=== PATIENT | male | born 2000 | race American Indian/Alaskan Native ===

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

== ENCOUNTER 2019-02-02 21:29 | Emergency (ER) | payer MEDICAID ==
[2019-02-02] MEDS ORDERED: MVI, Adult with Vitamin K 10 ML, Folic Acid 1 MG, Thiamine 100 MG in Lactated Ringers 1... IV ONE ×4 (21:38)
[2019-02-02] MEDS ORDERED: LORazepam 2 MG/ML Syringe IVPUSH ONE (21:38)
--- NOTE | 2019-02-02 21:42 | EDM.PDOC ---
ED HPI GENERAL MEDICAL PROBLEM - General Stated Complaint: SHOULDER ISSUES Time Seen by Provider: 02/02/19 21:39 Source of Information: Reports: Patient History Limitations: Reports: No Limitations - History of Present Illness INITIAL COMMENTS - FREE TEXT/NARRATIVE: states was drunk last night and fell down some stairs not sure if hit head did vomit once today thinks could be his anxiety or maybe going through DTs. wants banana bag & ativan. c/o pain mostly on left shoulder but not head/neck. but does have a headache. - Related Data Allergies Allergy/AdvReac Type Severity Reaction Status Date / Time Penicillins Allergy Cannot Verified 02/02/19 22:03 Remember Home Meds: Home Meds FLUoxetine [PROzac] 10 mg PO DAILY 01/23/19 [History] Past Medical History - Past Health History Medical/Surgical History: Denies Medical/Surgical History Neurological History: Reports: Concussion Psychiatric History: Reports: Addiction, Anxiety, Depression, Psych Hospitalization(s), Suicide Attempt, Suicidal Ideation - Past Surgical History GI Surgical History: Reports: Appendectomy Social & Family History - Family History Family Medical History: Noncontributory - Caffeine Use Caffeine Use: Reports: None - Living Situation & Occupation Living situation: Reports: Alone Occupation: Unemployed Review of Systems - Review of Systems Review Of Systems: ROS reveals no pertinent complaints other than HPI. ED EXAM, GENERAL - Physical Exam Exam: See Below Exam Limited By: No Limitations General Appearance: Alert, WD/WN, Anxious, Mild Distress, Moderate Distress Eye Exam: Bilateral Eye: PERRL (pupils ER @ 4mm) Ears: Hearing Grossly Normal Throat/Mouth: Normal Voice, No Airway Compromise Head: Atraumatic Neck: Non-Tender, Full Range of Motion Respiratory/Chest: No Respiratory Distress Cardiovascular: Regular Rate, Rhythm GI/Abdominal: Soft, Non-Tender Extremities: Other (left shoulder tender R/P, NV wnl) Neurological: Alert, Oriented, Normal Cognition, Normal Gait, No Motor/Sensory Deficits Psychiatric: Anxious Skin Exam: Warm, Dry, Normal Color Lymphatic: No Adenopathy Course - Vital Signs Last Recorded V/S: Last Vital Signs Temp 37.1 C 02/02/19 21:37 Pulse 114 H 02/02/19 22:15 Resp 18 02/02/19 22:15 BP 125/89 02/02/19 22:15 Pulse Ox 95 02/02/19 22:15 - Orders/Labs/Meds Labs: Laboratory Tests 02/02/19 02/02/19 02/02/19 Range/Units 21:43 21:43 21:45 WBC 6.9 (5.0-10.0) 10^3/uL RBC 6.14 (4.6-6.2) 10^6/uL Hgb 19.4 H D (14.0-18.0) g/dL Hct 54.8 H (40.0-54.0) % MCV 89.3 (80-100) fL MCH 31.6 (27.0-34.0) pg MCHC 35.4 H (33.0-35.0) g/dL Plt Count 323 (150-450) 10^3/uL Neut % (Auto) 65.0 (42.2-75.2) % Lymph % (Auto) 29.3 (20.5-50.1) % [place] % (Auto) 5.0 (2-8) % Eos % (Auto) 0.3 L (1.0-3.0) % Baso % (Auto) 0.4 (0.0-1.0) % Sodium (135-145) mmol/L Potassium (3.6-5.0) mmol/L Chloride (101-111) mmol/L Carbon Dioxide (21.0-31.0) mmol/L Anion Gap BUN (7-18) mg/dL Creatinine (0.6-1.3) mg/dL Est Cr Clr Drug Dosing mL/min Estimated GFR (MDRD) BUN/Creatinine Ratio Glucose (74-105) mg/dL Calcium (8.4-10.2) mg/dl Total Bilirubin (0.2-1.0) mg/dL AST (10-42) IU/L ALT (10-60) IU/L Alkaline Phosphatase (42-121) IU/L Total Protein (6.7-8.2) g/dl Albumin (3.2-5.5) g/dl Globulin Albumin/Globulin Ratio Urine Color Yellow (YELLOW) Urine Appearance Clear (CLEAR) Urine pH 6.0 (5.0-9.0) Ur Specific [place] 1.010 (1.005-1.030) Urine Protein Negative (NEGATIVE) Urine Glucose (UA) Negative (NEGATIVE) Urine Ketones Negative (NEGATIVE) Urine Occult Blood Trace-intact H (NEGATIVE) Urine Nitrite Negative (NEGATIVE) Urine Bilirubin Negative (NEGATIVE) Urine Urobilinogen 1.0 (0.2-1.0) mg/dL Ur Leukocyte Esterase Negative (NEGATIVE) Urine RBC 0-5 /HPF Urine WBC 0-5 (0-5/HPF) /HPF Ur Epithelial Cells Few (NOT SEEN) /HPF Urine Bacteria Few (0-FEW/HPF) /HPF Urine Opiates Screen Negative (NEGATIVE) Ur Oxycodone Screen Negative (NEGATIVE) Urine Methadone Screen Negative (NEGATIVE) Ur Barbiturates Screen Negative (NEGATIVE) U Tricyclic Antidepress Negative (NEGATIVE) Ur Phencyclidine Scrn Negative (NEGATIVE) Ur Amphetamine Screen Negative (NEGATIVE) U Methamphetamines Scrn Negative (NEGATIVE) Urine MDMA Screen Negative (NEGATIVE) U Benzodiazepines Scrn Negative (NEGATIVE) Urine Cocaine Screen Negative (NEGATIVE) U Marijuana (THC) Screen Negative (NEGATIVE) Ethyl Alcohol mg/dL 02/02/19 Range/Units 21:45 WBC (5.0-10.0) 10^3/uL RBC (4.6-6.2) 10^6/uL Hgb (14.0-18.0) g/dL Hct (40.0-54.0) % MCV (80-100) fL MCH (27.0-34.0) pg MCHC (33.0-35.0) g/dL Plt Count (150-450) 10^3/uL Neut % (Auto) (42.2-75.2) % Lymph % (Auto) (20.5-50.1) % [place] % (Auto) (2-8) % Eos % (Auto) (1.0-3.0) % Baso % (Auto) (0.0-1.0) % Sodium 139 (135-145) mmol/L Potassium 3.9 (3.6-5.0) mmol/L Chloride 102 (101-111) mmol/L Carbon Dioxide 21.0 (21.0-31.0) mmol/L Anion Gap 19.9 BUN 5 L (7-18) mg/dL Creatinine 1.0 (0.6-1.3) mg/dL Est Cr Clr Drug Dosing 117.83 mL/min Estimated GFR (MDRD) > 60 BUN/Creatinine Ratio 5.00 Glucose 117 H (74-105) mg/dL Calcium 9.5 (8.4-10.2) mg/dl Total Bilirubin 1.5 H (0.2-1.0) mg/dL AST 85 H (10-42) IU/L ALT 63 H (10-60) IU/L Alkaline Phosphatase 139 H (42-121) IU/L Total Protein 8.9 H (6.7-8.2) g/dl Albumin 5.0 (3.2-5.5) g/dl Globulin 3.9 Albumin/Globulin Ratio 1.28 Urine Color (YELLOW) Urine Appearance (CLEAR) Urine pH (5.0-9.0) Ur Specific [place] (1.005-1.030) Urine Protein (NEGATIVE) Urine Glucose (UA) (NEGATIVE) Urine Ketones (NEGATIVE) Urine Occult Blood (NEGATIVE) Urine Nitrite (NEGATIVE) Urine Bilirubin (NEGATIVE) Urine Urobilinogen (0.2-1.0) mg/dL Ur Leukocyte Esterase (NEGATIVE) Urine RBC /HPF Urine WBC (0-5/HPF) /HPF Ur Epithelial Cells (NOT SEEN) /HPF Urine Bacteria (0-FEW/HPF) /HPF Urine Opiates Screen (NEGATIVE) Ur Oxycodone Screen (NEGATIVE) Urine Methadone Screen (NEGATIVE) Ur Barbiturates Screen (NEGATIVE) U Tricyclic Antidepress (NEGATIVE) Ur Phencyclidine Scrn (NEGATIVE) Ur Amphetamine Screen (NEGATIVE) U Methamphetamines Scrn (NEGATIVE) Urine MDMA Screen (NEGATIVE) U Benzodiazepines Scrn (NEGATIVE) Urine Cocaine Screen (NEGATIVE) U Marijuana (THC) Screen (NEGATIVE) Ethyl Alcohol 258 mg/dL Meds: Medications Discontinued Medications Generic Name Dose Route Start Last Admin Trade Name Víctor PRN Reason Stop Dose Admin Multivitamins/Minerals 10 ml/ 1,011.2 mls @ 999 mls/hr 02/02/19 21:38 22:11 Folic Acid 1 mg/ Thiamine HCl IV 02/02/19 22:38 999 mls/hr 100 mg/ Lactated Ringer's ONETIME ONE Administration Lorazepam 2 mg 02/02/19 21:38 02/02/19 22:12 Ativan IVPUSH 02/02/19 21:39 2 mg ONETIME ONE Administration - Re-Assessments/Exams Free Text/Narrative Re-Assessment/Exam: 02/02/19 22:39 results discussed with pt. Departure - Departure Time of Disposition: 23:25 Disposition: Home, Self-Care 01 Condition: Good Clinical Impression: Dehydration symptoms Clavicle fracture, shaft Qualifiers: Encounter type: initial encounter Fracture type: closed Fracture alignment: nondisplaced Laterality: left Qualified Code(s): S42.025A - Nondisplaced fracture of shaft of left clavicle, initial encounter for closed fracture Alcohol intoxication Qualifiers: Complication of substance-induced condition: uncomplicated Qualified Code(s): F10.920 - Alcohol use, unspecified with intoxication, uncomplicated - Discharge Information Instructions: Clavicle Fracture Referrals: PCP,None [Primary Care Provider] - Forms: ED Department Discharge Additional Instructions: 1) wear sling 2) see clinic tomorrow for ORTHOPEDIC REFERRAL 3) take tylenol or motrin for pain
[2019-02-02 22:09] LABS: ANION GAP 19.9; CHLORIDE,CL 102 mmol/L (101-111); SODIUM,NA 139 mmol/L (135-145)
[2019-02-02 22:28] VITALS: BP 125/89
== END 2019-02-02 23:25 | disposition home or self-care (01) ==
LOC: DL.ED 21:29
DX: S42.025A Nondisplaced fracture of shaft of left clavicle, initial encounter for closed fracture (principal); F10.120 Alcohol abuse with intoxication, uncomplicated; Y90.8 Blood alcohol level of 240 mg/100 ml or more; F41.9 Anxiety disorder, unspecified; F32.9 Major depressive disorder, single episode, unspecified; Z88.0 Allergy status to penicillin; Z79.899 Other long term (current) drug therapy; W10.9XXA Fall (on) (from) unspecified stairs and steps, initial encounter
CPT/HCPCS: 36415; 70450; 71045; 73030; 80053; 80305; 81001; 85025; 96365; 96375; 99284; G0480; J2060; J3411; J7120; J3490

== ENCOUNTER 2019-02-28 10:31 | Emergency (ER) | payer MEDICAID ==
[2019-02-28 11:01] VITALS: BP 125/81; PULSE 69
[2019-02-28] MEDS ORDERED: Ondansetron 4 MG/2 ML SDV IV ONE (11:04)
[2019-02-28] MEDS ORDERED: Famotidine 20 MG/2 ML SDV IVPUSH ONE (11:04)
[2019-02-28] MEDS ORDERED: MVI, Adult with Vitamin K 10 ML, Folic Acid 1 MG, Thiamine 100 MG in Lactated Ringers 1... IV ONE ×4 (11:05)
[2019-02-28 11:51] LABS: ANION GAP 15.4; CHLORIDE,CL 107 mmol/L (101-111); SODIUM,NA 139 mmol/L (135-145)
[2019-02-28] MEDS ORDERED: LORazepam 2 MG/ML Syringe IVPUSH ONE (11:58)
--- NOTE | 2019-02-28 12:37 | EDM.PDOCBH ---
ED HPI GENERAL MEDICAL PROBLEM - General Chief Complaint: Drug or Alcohol Abuse Stated Complaint: AMBULANCE Time Seen by Provider: 02/28/19 10:35 Source of Information: Reports: Patient, EMS History Limitations: Reports: No Limitations - History of Present Illness INITIAL COMMENTS - FREE TEXT/NARRATIVE: ED via [facility] with report of drinking last night and had seizure this am, nauseated. No family or witness to seizure available. Patient has similar hx. Is on no medications for seizure. Patient asking for ativan and banana bag on arrival. Admitted to drinking about one liter of vodka last night, Denied other drug use. Vomited x 1 this am. - Related Data Allergies Allergy/AdvReac Type Severity Reaction Status Date / Time Penicillins Allergy Cannot Verified 02/28/19 10:37 Remember Home Meds: Home Meds . [No Known Home Meds] 02/28/19 [History] Past Medical History - Past Health History Medical/Surgical History: Denies Medical/Surgical History HEENT History: Reports: None Cardiovascular History: Reports: None Respiratory History: Reports: None Gastrointestinal History: Reports: None Genitourinary History: Reports: None Musculoskeletal History: Reports: None Neurological History: Reports: Concussion, Seizure Other Neuro History: Alcoholic withdrawal Seizures Psychiatric History: Reports: Addiction, Anxiety, Depression, Psych Hospitalization(s), Suicide Attempt, Suicidal Ideation Endocrine/Metabolic History: Reports: None Hematologic History: Reports: None Immunologic History: Reports: None Oncologic (Cancer) History: Reports: None Dermatologic History: Reports: None - Past Surgical History GI Surgical History: Reports: Appendectomy Social & Family History - Family History Family Medical History: Noncontributory - Tobacco Use Smoking Status *Q: Current Every Day Smoker Years of Tobacco use: 8 Packs/Tins Daily: 1 - Caffeine Use Caffeine Use: Reports: None - Recreational Drug Use Recreational Drug Use: No - Living Situation & Occupation Living situation: Reports: Alone Occupation: Unemployed ED ROS GENERAL - Review of Systems Review Of Systems: ROS reveals no pertinent complaints other than HPI. ED EXAM, BEHAVIORAL HEALTH - Physical Exam Exam: See Below Exam Limited By: No Limitations General Appearance: Alert, No Apparent Distress, Anxious Eye Exam: Bilateral Eye: EOMI, PERRL Ears: Normal External Exam Nose: Normal Inspection Throat/Mouth: Normal Inspection Head: Atraumatic, Normocephalic Neck: Normal Inspection Respiratory/Chest: No Respiratory Distress, Lungs Clear, Normal Breath Sounds Cardiovascular: Normal Peripheral Pulses, Regular Rate, Rhythm GI/Abdominal: Normal Bowel Sounds, Soft, Tender (epigastric) Extremities: Normal Inspection Neurological: Alert, Normal Cognition, Oriented x 3, Opens Eyes to Commands. No : Disoriented to Time, Inattentive Psychiatric: Alert, Flat Affect, Poor Eye Contact Skin Exam: Warm, Dry, Intact, Normal color COURSE, BEHAVIORAL HEALTH COMP - Course Vital Signs: Last Vital Signs Temp 99 F 02/28/19 10:32 Pulse 69 02/28/19 10:32 Resp 20 02/28/19 10:32 BP 125/81 02/28/19 10:32 Pulse Ox 99 02/28/19 10:32 Orders, Labs, Meds: Laboratory Tests 02/28/19 02/28/19 02/28/19 Range/Units 10:48 10:48 11:17 WBC 7.3 (5.0-10.0) 10^3/uL RBC 5.17 (4.6-6.2) 10^6/uL Hgb 16.5 D (14.0-18.0) g/dL Hct 47.3 (40.0-54.0) % MCV 91.5 (80-100) fL MCH 31.9 (27.0-34.0) pg MCHC 34.9 (33.0-35.0) g/dL Plt Count 246 D (150-450) 10^3/uL Neut % (Auto) 61.7 (42.2-75.2) % Lymph % (Auto) 28.0 (20.5-50.1) % Daniels % (Auto) 9.4 H (2-8) % Eos % (Auto) 0.8 L (1.0-3.0) % Baso % (Auto) 0.1 (0.0-1.0) % Sodium 139 (135-145) mmol/L Potassium 3.4 L (3.6-5.0) mmol/L Chloride 107 (101-111) mmol/L Carbon Dioxide 20.0 L (21.0-31.0) mmol/L Anion Gap 15.4 BUN 10 (7-18) mg/dL Creatinine 1.0 (0.6-1.3) mg/dL Est Cr Clr Drug Dosing 117.83 mL/min Estimated GFR (MDRD) > 60 BUN/Creatinine Ratio 10.00 Glucose 89 (74-105) mg/dL Calcium 9.2 (8.4-10.2) mg/dl Total Bilirubin 1.0 (0.2-1.0) mg/dL AST 28 (10-42) IU/L ALT 25 (10-60) IU/L Alkaline Phosphatase 107 (42-121) IU/L Total Protein 7.2 (6.7-8.2) g/dl Albumin 4.3 (3.2-5.5) g/dl Globulin 2.9 Albumin/Globulin Ratio 1.48 Urine Color Dark yellow (YELLOW) Urine Appearance Slightly cloudy (CLEAR) Urine pH 5.5 (5.0-9.0) Ur Specific [place] >= 1.030 (1.005-1.030) Urine Protein Trace H (NEGATIVE) Urine Glucose (UA) Negative (NEGATIVE) Urine Ketones 15 H (NEGATIVE) Urine Occult Blood Negative (NEGATIVE) Urine Nitrite Negative (NEGATIVE) Urine Bilirubin Negative (NEGATIVE) Urine Urobilinogen 1.0 (0.2-1.0) mg/dL Ur Leukocyte Esterase Negative (NEGATIVE) Urine RBC 0-5 /HPF Urine WBC 5-10 H (0-5/HPF) /HPF Ur Epithelial Cells Rare (NOT SEEN) /HPF Amorphous Sediment Rare (NOT SEEN) /HPF Urine Bacteria Rare (0-FEW/HPF) /HPF Hyaline Casts Rare H (NOT SEEN) /LPF Urine Mucus Many H (NOT SEEN) /LPF Urine Opiates Screen (NEGATIVE) Ur Oxycodone Screen (NEGATIVE) Urine Methadone Screen (NEGATIVE) Ur Barbiturates Screen (NEGATIVE) U Tricyclic Antidepress (NEGATIVE) Ur Phencyclidine Scrn (NEGATIVE) Ur Amphetamine Screen (NEGATIVE) U Methamphetamines Scrn (NEGATIVE) Urine MDMA Screen (NEGATIVE) U Benzodiazepines Scrn (NEGATIVE) Urine Cocaine Screen (NEGATIVE) U Marijuana (THC) Screen (NEGATIVE) Ethyl Alcohol 14 mg/dL 02/28/19 Range/Units 11:17 WBC (5.0-10.0) 10^3/uL RBC (4.6-6.2) 10^6/uL Hgb (14.0-18.0) g/dL Hct (40.0-54.0) % MCV (80-100) fL MCH (27.0-34.0) pg MCHC (33.0-35.0) g/dL Plt Count (150-450) 10^3/uL Neut % (Auto) (42.2-75.2) % Lymph % (Auto) (20.5-50.1) % Daniels % (Auto) (2-8) % Eos % (Auto) (1.0-3.0) % Baso % (Auto) (0.0-1.0) % Sodium (135-145) mmol/L Potassium (3.6-5.0) mmol/L Chloride (101-111) mmol/L Carbon Dioxide (21.0-31.0) mmol/L Anion Gap BUN (7-18) mg/dL Creatinine (0.6-1.3) mg/dL Est Cr Clr Drug Dosing mL/min Estimated GFR (MDRD) BUN/Creatinine Ratio Glucose (74-105) mg/dL Calcium (8.4-10.2) mg/dl Total Bilirubin (0.2-1.0) mg/dL AST (10-42) IU/L ALT (10-60) IU/L Alkaline Phosphatase (42-121) IU/L Total Protein (6.7-8.2) g/dl Albumin (3.2-5.5) g/dl Globulin Albumin/Globulin Ratio Urine Color (YELLOW) Urine Appearance (CLEAR) Urine pH (5.0-9.0) Ur Specific [place] (1.005-1.030) Urine Protein (NEGATIVE) Urine Glucose (UA) (NEGATIVE) Urine Ketones (NEGATIVE) Urine Occult Blood (NEGATIVE) Urine Nitrite (NEGATIVE) Urine Bilirubin (NEGATIVE) Urine Urobilinogen (0.2-1.0) mg/dL Ur Leukocyte Esterase (NEGATIVE) Urine RBC /HPF Urine WBC (0-5/HPF) /HPF Ur Epithelial Cells (NOT SEEN) /HPF Amorphous Sediment (NOT SEEN) /HPF Urine Bacteria (0-FEW/HPF) /HPF Hyaline Casts (NOT SEEN) /LPF Urine Mucus (NOT SEEN) /LPF Urine Opiates Screen Negative (NEGATIVE) Ur Oxycodone Screen Negative (NEGATIVE) Urine Methadone Screen Negative (NEGATIVE) Ur Barbiturates Screen Negative (NEGATIVE) U Tricyclic Antidepress Negative (NEGATIVE) Ur Phencyclidine Scrn Negative (NEGATIVE) Ur Amphetamine Screen Negative (NEGATIVE) U Methamphetamines Scrn Negative (NEGATIVE) Urine MDMA Screen Negative (NEGATIVE) U Benzodiazepines Scrn Negative (NEGATIVE) Urine Cocaine Screen Negative (NEGATIVE) U Marijuana (THC) Screen Negative (NEGATIVE) Ethyl Alcohol mg/dL Medications Discontinued Medications Generic Name Dose Route Start Last Admin Trade Name Víctor PRN Reason Stop Dose Admin Famotidine 20 mg 02/28/19 11:04 02/28/19 11:22 Pepcid IVPUSH 02/28/19 11:05 20 mg ONETIME ONE Administration Multivitamins/Minerals 10 ml/ 1,011.2 mls @ 999 mls/hr 02/28/19 11:05 11:19 Folic Acid 1 mg/ Thiamine HCl IV 02/28/19 12:05 999 mls/hr 100 mg/ Lactated Ringer's ONETIME ONE Administration Lorazepam 1 mg 02/28/19 11:58 02/28/19 12:22 Ativan IVPUSH 02/28/19 11:59 1 mg ONETIME ONE Administration Ondansetron HCl 4 mg 02/28/19 11:04 02/28/19 11:24 Zofran IV 02/28/19 11:05 4 mg ONETIME ONE Administration Departure - Departure Time of Disposition: 12:36 Disposition: Home, Self-Care 01 Condition: Good Clinical Impression: Alcohol abuse, Anxiety, Witnessed seizure-like activity - Discharge Information *PRESCRIPTION DRUG MONITORING PROGRAM REVIEWED*: No *COPY OF PRESCRIPTION DRUG MONITORING REPORT IN PATIENT MEIR: No Instructions: Alcohol Use Disorder Referrals: PCP,None [Primary Care Provider] - Forms: ED Department Discharge Additional Instructions: stop drinking, light activity follow up as needed
== END 2019-02-28 12:59 | disposition home or self-care (01) ==
LOC: DL.ED 10:31
DX: F10.10 Alcohol abuse, uncomplicated (principal); F41.9 Anxiety disorder, unspecified; F17.210 Nicotine dependence, cigarettes, uncomplicated; Z88.0 Allergy status to penicillin; Z90.49 Acquired absence of other specified parts of digestive tract
CPT/HCPCS: 36415; 80053; 80305; 80320; 81001; 85025; 96365; 96375; 99285; J2060; J2405; J3411; J3490; J7120; G0480

== ENCOUNTER 2019-03-13 22:31 | Emergency (ER) | payer MEDICAID ==
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
[2019-03-13 23:00] LABS: ACETAMINOPHEN < 10 ug/mL
[2019-03-13 23:01] LABS: ANION GAP 18.3; CHLORIDE,CL 105 mmol/L (101-111); SODIUM,NA 140 mmol/L (135-145)
== END 2019-03-14 00:56 | disposition home or self-care (01) ==
LOC: DL.ED 22:31
DX: S02.40DA Maxillary fracture, left side, initial encounter for closed fracture (principal); S42.022A Displaced fracture of shaft of left clavicle, initial encounter for closed fracture; Z88.0 Allergy status to penicillin; Y04.2XXA Assault by strike against or bumped into by another person, initial encounter
CPT/HCPCS: 36415; 70450; 70486; 71100-LT; 72125; 73030-LT; 80053; 80305-QW; 81001; 85025; 99285-25; G0480

== ENCOUNTER 2019-05-05 05:42 | Emergency (ER) | payer MEDICAID ==
[2019-05-05] MEDS ORDERED: Sodium Chloride 0.9% 1,000 ML IV ONE (05:55)
[2019-05-05] MEDS ORDERED: LORazepam 2 MG/ML Syringe IVPUSH ONE (05:55)
[2019-05-05 05:56] VITALS: BP 150/89; PULSE 128
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
[2019-05-05] MEDS ORDERED: Ondansetron 4 MG/2 ML SDV IV ONE (06:28)
[2019-05-05 06:37] LABS: ANION GAP 18.1; CHLORIDE,CL 97 mmol/L (101-111); SODIUM,NA 134 mmol/L (135-145)
== END 2019-05-05 08:17 | disposition home or self-care (01) ==
LOC: DL.ED 05:42
DX: S00.83XA Contusion of other part of head, initial encounter (principal); R56.9 Unspecified convulsions; F10.239 Alcohol dependence with withdrawal, unspecified; F17.210 Nicotine dependence, cigarettes, uncomplicated; Z88.0 Allergy status to penicillin; X58.XXXA Exposure to other specified factors, initial encounter; Y90.5 Blood alcohol level of 100-119 mg/100 ml
CPT/HCPCS: 36415; 70110; 80053; 80320; 85025; 96361; 96374; 96375; 99285; J2060; J2405; J7030; G0480

== ENCOUNTER 2019-08-27 22:53 | Emergency (ER) | payer MEDICAID ==
[~2019-08-27 22:53] MED LIST: Sodium Chloride 0.9% 1,000 ML IV ONE
--- NOTE | 2019-08-27 22:53 | EDM.PDOCBH ---
ED HPI GENERAL MEDICAL PROBLEM - General Chief Complaint: Behavioral/Psych Stated Complaint: AMBULANCE Time Seen by Provider: 08/27/19 22:35 Source of Information: Reports: EMS History Limitations: Reports: Altered Mental Status - History of Present Illness INITIAL COMMENTS - FREE TEXT/NARRATIVE: This 19 yo male patient was brought to the ED by [facility] due to an intentional Tylenol PM overdose. EMS brought the patient into the ED with a suicide note. EMS reports the patient's family reported the pill bottle was "full" of Tylenol PM. EMS brought a bottle of Tylenol with them (500 mg). The bottle had 2 pills ( oblong and blue) with S525 (Tylenol PM - 500 mg of Tylenol and 25 mg of Diphenhydramine). 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 [No Known Home Meds] 02/28/19 [History] Past Medical History - Past Health History Medical/Surgical History: Denies Medical/Surgical History HEENT History: Reports: None Cardiovascular History: Reports: None Respiratory History: Reports: None Gastrointestinal History: Reports: None Genitourinary History: Reports: None Musculoskeletal History: Reports: None Neurological History: Reports: Concussion, Seizure Other Neuro History: Alcoholic withdrawal Seizures Psychiatric History: Reports: Addiction, Anxiety, Depression, Psych Hospitalization(s), Suicide Attempt, Suicidal Ideation Endocrine/Metabolic History: Reports: None Hematologic History: Reports: None Immunologic History: Reports: None Oncologic (Cancer) History: Reports: None Dermatologic History: Reports: None - Past Surgical History GI Surgical History: Reports: Appendectomy Social & Family History - Family History Family Medical History: Noncontributory - Caffeine Use Caffeine Use: Reports: Soda - Living Situation & Occupation Living situation: Reports: Alone Occupation: Unemployed ED ROS GENERAL - Review of Systems Review Of Systems: Comprehensive ROS is negative, except as noted in HPI. ED EXAM, BEHAVIORAL HEALTH - Physical Exam Exam: See Below Exam Limited By: Altered Mental Status General Appearance: Alert, Lethargic Eye Exam: Bilateral Eye: EOMI, PERRL (sluggish but reactive) Ears: Normal External Exam, Normal Canal, Hearing Grossly Normal, Normal TMs Nose: Normal Inspection, Normal Mucosa, No Blood Throat/Mouth: Normal Inspection, Normal Lips, Normal Teeth, Normal Gums, Normal Oropharynx, Normal Voice, No Airway Compromise Head: Atraumatic, Normocephalic Neck: Normal Inspection, Supple, Non-Tender, Full Range of Motion Respiratory/Chest: No Respiratory Distress, Lungs Clear, Normal Breath Sounds, No Accessory Muscle Use, Chest Non-Tender Cardiovascular: Normal Peripheral Pulses, Regular Rate, Rhythm, No Edema, No Gallop, No JVD, No Murmur, No Rub GI/Abdominal: Normal Bowel Sounds (Male) Exam: Deferred Rectal (Males) Exam: Deferred Back Exam: Normal Inspection, Full Range of Motion, NT Extremities: Normal Inspection, Normal Range of Motion, Non-Tender, Normal Capillary Refill, No Pedal Edema Neurological: Inattentive, Opens Eyes to Commands, Slow Response to Commands Psychiatric: Flat Affect, Poor Eye Contact, Suicidal Plan, Suicidal Thoughts Skin Exam: Warm, Dry, Intact, Normal color, No rash COURSE, BEHAVIORAL HEALTH COMP - Course Vital Signs: Last Vital Signs Temp 36.8 C 08/27/19 22:38 Pulse 99 08/27/19 22:38 Resp 19 08/27/19 22:38 BP 141/87 H 08/27/19 22:38 Pulse Ox 100 08/27/19 22:38 Orders, Labs, Meds: Active Orders 24 hr Category Date Time Status EKG Documentation Completion [RC] URGENT Care 08/27/19 22:32 Ordered ACETAMINOPHEN [CHEM] Stat Lab 08/27/19 22:32 Ordered CBC WITH AUTO DIFF [HEME] Urgent Lab 08/27/19 22:32 Ordered COMPREHENSIVE METABOLIC PN,CMP [CHEM] Urgent Lab 08/27/19 22:32 Ordered DRUG SCREEN URINE BIORAD [URCHEM] Stat Lab 08/27/19 22:32 Ordered ETHANOL BLOOD MEDICAL [CHEM] Stat Lab 08/27/19 22:32 Ordered MAGNESIUM [CHEM] Stat Lab 08/27/19 22:32 Ordered SALICYLATE [CHEM] Stat Lab 08/27/19 22:32 Ordered TROPONIN I [CHEM] Urgent Lab 08/27/19 22:32 Ordered UA RFX ISIDRO AND CULT IF INDIC [URIN] Urgent Lab 08/27/19 22:32 Ordered Sodium Chloride 0.9% [Normal Saline] 1,000 ml Med 08/27/19 22:41 Ordered IV .BOLUS Departure - Departure Time of Disposition: 23:45 Disposition: DC/Tfer to Acute Hospital 02 Condition: Serious Clinical Impression: Suicidal intent Tylenol overdose Qualifiers: Encounter type: initial encounter Injury intent: intentional self-harm Qualified Code(s): T39.1X2A - Poisoning by 4-Aminophenol derivatives, intentional self-harm, initial encounter - Discharge Information *PRESCRIPTION DRUG MONITORING PROGRAM REVIEWED*: Not Applicable *COPY OF PRESCRIPTION DRUG MONITORING REPORT IN PATIENT MEIR: Not Applicable Forms: Interfacility Transfer EMTALA, ED Return to Work/School Form Care Plan Goals: Discussed the patient's history, examination, lab results, recommendations from Poison Control and treatments with Dr. Martinez (Hospitalist with [facility] in [place]). Dr. Martinez accepted the patient for continued evaluation and further management as an inpatient at [facility] in [place]. The patient will be transported by [facility]. Sepsis Event Note - Focused Exam Vital Signs: Vital Signs Temp Pulse Resp BP Pulse Ox 08/27/19 22:38 36.8 C 99 19 141/87 H 100 Date Exam was Performed: 08/27/19 Time Exam was Performed: 22:42 - My Orders Last 24 Hours: My Active Orders 08/27/19 22:32 EKG Documentation Completion [RC] URGENT ACETAMINOPHEN [CHEM] Stat CBC WITH AUTO DIFF [HEME] Urgent COMPREHENSIVE METABOLIC PN,CMP [CHEM] Urgent DRUG SCREEN URINE BIORAD [URCHEM] Stat ETHANOL BLOOD MEDICAL [CHEM] Stat MAGNESIUM [CHEM] Stat SALICYLATE [CHEM] Stat TROPONIN I [CHEM] Urgent UA RFX ISIDRO AND CULT IF INDIC [URIN] Urgent 08/27/19 22:41 Sodium Chloride 0.9% [Normal Saline] 1,000 ml IV .BOLUS - Assessment/Plan Last 24 Hours: My Active Orders 08/27/19 22:32 EKG Documentation Completion [RC] URGENT ACETAMINOPHEN [CHEM] Stat CBC WITH AUTO DIFF [HEME] Urgent COMPREHENSIVE METABOLIC PN,CMP [CHEM] Urgent DRUG SCREEN URINE BIORAD [URCHEM] Stat ETHANOL BLOOD MEDICAL [CHEM] Stat MAGNESIUM [CHEM] Stat SALICYLATE [CHEM] Stat TROPONIN I [CHEM] Urgent UA RFX ISIDRO AND CULT IF INDIC [URIN] Urgent 08/27/19 22:41 Sodium Chloride 0.9% [Normal Saline] 1,000 ml IV .BOLUS
[2019-08-27 23:10] LABS: ANION GAP 12.8 mEq/L (7-13); CHLORIDE,CL 102 mmol/L (98-107); SODIUM,NA 136 mmol/L (136-145)
[2019-08-27 23:15] LABS: ACETAMINOPHEN 17 ug/mL (10-30 (Therapeutic))
[2019-08-28] MEDS: ACETYLCYSTEINE IV ONE ×4 (00:09→01:00)
[2019-08-28] MEDS: DEXTROSE 5% IV ONE ×4 (00:09→01:00)
[2019-08-28] MEDS: WATER IV ONE ×4 (00:09→01:00)
[2019-08-28 01:02] VITALS: BP 137/89; PULSE 77
== END 2019-08-28 00:10 ==
LOC: DL.ED 22:53
DX: T39.1X2A Poisoning by 4-Aminophenol derivatives, intentional self-harm, initial encounter (principal); Z88.0 Allergy status to penicillin; Z90.49 Acquired absence of other specified parts of digestive tract
CPT/HCPCS: 36415; 51702; 80053; 80305-QW; 80307; 81001; 83735; 84484; 85025; 85610; 93005; 96365; 99285-25; J0132; J7030; J7060

== ENCOUNTER 2019-11-05 11:18 | Observation (INO) | payer MEDICAID ==
[2019-11-05] MEDS ORDERED: Sodium Chloride 0.9% 1,000 ML IV ONE (11:42)
[2019-11-05] MEDS ORDERED: LORazepam 2 MG/ML SDV IVPUSH ONE (11:43)
--- NOTE | 2019-11-05 11:43 | EDM.PDOC ---
ED HPI GENERAL MEDICAL PROBLEM - General Stated Complaint: BLOOD IN URINE Time Seen by Provider: 11/05/19 11:25 Source of Information: Reports: Patient History Limitations: Reports: No Limitations - History of Present Illness INITIAL COMMENTS - FREE TEXT/NARRATIVE: This 19 yo male patient reports to the ED today due to noticing blood in his stool today. The patient reports he noticed the blood this morning at about 0800. The patient reports he has been drinking up to 1/2 gallon of alcohol per day for the past 5-6 years. The patient reports he has had seizures in the past due to alcohol withdrawal. The patient reports he has had previous episodes of vomiting blood in the past. The patient also reports a history of anxiety. The patient has not been taking any medications for his anxiety due to not having a primary care provider to refill his medications. The patient reports he has been feeling lightheaded today as well. Onset: Today Duration: Constant Location: Reports: Generalized Quality: Reports: Other Severity: Moderate Improves with: Reports: None Worsens with: Reports: None Context: Reports: Other Associated Symptoms: Reports: No Other Symptoms Bilateral Lower Abdomen Pain Score (Numeric/FACES): 5 - Related Data Allergies Allergy/AdvReac Type Severity Reaction Status Date / Time Penicillins Allergy Cannot Verified 08/27/19 23:04 Remember Home Meds: Home Meds . [No Known Home Meds] 02/28/19 [History] Past Medical History - Past Health History Medical/Surgical History: Denies Medical/Surgical History HEENT History: Reports: None Cardiovascular History: Reports: None Respiratory History: Reports: None Gastrointestinal History: Reports: None Genitourinary History: Reports: None Musculoskeletal History: Reports: None Neurological History: Reports: Concussion, Seizure Other Neuro History: Alcoholic withdrawal Seizures Psychiatric History: Reports: Addiction, Anxiety, Depression, Psych Hospitalization(s), Suicide Attempt, Suicidal Ideation Endocrine/Metabolic History: Reports: None Hematologic History: Reports: None Immunologic History: Reports: None Oncologic (Cancer) History: Reports: None Dermatologic History: Reports: None - Past Surgical History GI Surgical History: Reports: Appendectomy Social & Family History - Family History Family Medical History: Noncontributory - Caffeine Use Caffeine Use: Reports: Soda - Living Situation & Occupation Living situation: Reports: Alone Occupation: Unemployed ED ROS GENERAL - Review of Systems Review Of Systems: Comprehensive ROS is negative, except as noted in HPI. ED EXAM, GI/ABD - Physical Exam Exam: See Below Exam Limited By: No Limitations General Appearance: Alert, WD/WN, Anxious, Moderate Distress Eyes: Bilateral: Normal Appearance, EOMI Ears: Normal External Exam, Normal Canal, Hearing Grossly Normal, Normal TMs Nose: Normal Inspection, Normal Mucosa, No Blood Throat/Mouth: Normal Inspection, Normal Lips, Normal Teeth, Normal Gums, Normal Oropharynx, Normal Voice, No Airway Compromise Head: Atraumatic, Normocephalic Neck: Normal Inspection, Supple, Non-Tender, Full Range of Motion Respiratory/Chest: No Respiratory Distress, Lungs Clear, Normal Breath Sounds, No Accessory Muscle Use, Chest Non-Tender Cardiovascular: Normal Peripheral Pulses, Regular Rate, Rhythm, No Edema, No Gallop, No JVD, No Murmur, No Rub GI/Abdominal Exam: Normal Bowel Sounds, Soft, Non-Tender, No Organomegaly, No Distention, No Abnormal Bruit, No Mass, Pelvis Stable (Male) Exam: Deferred Rectal (Males) Exam: Normal Exam, Normal Rectal Tone, Prostate Normal Back Exam: Normal Inspection, Full Range of Motion, NT Extremities: Normal Inspection, Normal Range of Motion, Non-Tender, Normal Capillary Refill, No Pedal Edema Neurological: Alert, Oriented, CN II-XII Intact, Normal Cognition, Normal Gait, Normal Reflexes, No Motor/Sensory Deficits Psychiatric: Normal Affect, Normal Mood Skin Exam: Warm, Dry, Intact, Normal Color, No Rash Lymphatic: No Adenopathy Course - Vital Signs Last Recorded V/S: Last Vital Signs Temp 37.0 C 11/05/19 11:42 Pulse 101 H 11/05/19 11:42 Resp 20 11/05/19 11:42 BP 135/91 H 11/05/19 11:42 Pulse Ox 99 11/05/19 11:42 - Orders/Labs/Meds Orders: Active Orders 24 hr Category Date Time Status DRUG SCREEN URINE BIORAD [URCHEM] Stat Lab 11/05/19 11:32 Ordered UA RFX ISIDRO AND CULT IF INDIC [URIN] Urgent Lab 11/05/19 11:32 Ordered MVI w/Vit K 10 ML,Folic Acid 1 MG,Thiamine 100 MG in LR Med 11/05/19 12:06 Ordered @ 999 MLS/HR MVI, Adult with Vitamin K [Infuvite Adult] 10 ml Folic Acid 1 mg Thiamine [Vitamin B-1] 100 mg Lactated Ringers [Ringers, Lactated] 1,000 ml IV ONETIME Sodium Chloride 0.9% [Normal Saline] 1,000 ml Med 11/05/19 11:42 Active IV .BOLUS Medication Orders Sodium Chloride (Normal Saline) 1,000 mls @ 999 mls/hr IV .BOLUS ONE Stop: 11/05/19 12:42 Last Admin: 11/05/19 12:02 Dose: 999 mls/hr Multivitamins/Minerals 10 ml/Folic Acid 1 mg/ Thiamine HCl 100 mg/ Lactated Ringer's 1,011.2 mls @ 999 mls/hr IV ONETIME ONE Stop: 11/05/19 13:06 Labs: Laboratory Tests 11/05/19 11/05/19 Range/Units 11:33 11:33 WBC 8.7 (5.0-10.0) 10^3/uL RBC 5.10 (4.6-6.2) 10^6/uL Hgb 17.1 D (14.0-18.0) g/dL Hct 47.2 (40.0-54.0) % MCV 92.5 (80-100) fL MCH 33.5 (27.0-34.0) pg MCHC 36.2 H (33.0-35.0) g/dL Plt Count 189 (150-450) 10^3/uL Neut % (Auto) 69.0 (42.2-75.2) % Lymph % (Auto) 25.6 (20.5-50.1) % Gilchrist % (Auto) 4.6 (2-8) % Eos % (Auto) 0.5 L (1.0-3.0) % Baso % (Auto) 0.3 (0.0-1.0) % Sodium 136 (136-145) mmol/L Potassium 3.2 L (3.5-5.1) mmol/L Chloride 96 L (98-107) mmol/L Carbon Dioxide 23 (21-32) mmol/L Anion Gap 20.2 H (7-13) mEq/L BUN 9 (7-18) mg/dL Creatinine 1.00 (0.70-1.30) mg/dL Est Cr Clr Drug Dosing 116.85 mL/min Estimated GFR (MDRD) > 60 BUN/Creatinine Ratio 9.0 (No establ ref range) Glucose 94 (74-99) mg/dL Calcium 8.9 (8.5-10.1) mg/dL Total Bilirubin 1.2 H (0.2-1.0) mg/dL AST 56 H (15-37) U/L ALT 51 (16-63) U/L Alkaline Phosphatase 107 (46-116) U/L Total Protein 7.9 (6.4-8.2) g/dL Albumin 4.3 (3.4-5.0) g/dL Globulin 3.6 Albumin/Globulin Ratio 1.2 Ethyl Alcohol 51 (0) mg/dL Meds: Medications Generic Name Dose Route Start Last Admin Trade Name Freq PRN Reason Stop Dose Admin Sodium Chloride 1,000 mls @ 999 mls/hr 11/05/19 11:42 11/05/19 12:02 Normal Saline IV 11/05/19 12:42 999 mls/hr .BOLUS ONE Administration Multivitamins/Minerals 10 ml/ 1,011.2 mls @ 999 mls/hr 11/05/19 12:06 Folic Acid 1 mg/ Thiamine HCl IV 11/05/19 13:06 100 mg/ Lactated Ringer's ONETIME ONE Discontinued Medications Generic Name Dose Route Start Last Admin Trade Name Freq PRN Reason Stop Dose Admin Lorazepam 0.5 mg 11/05/19 11:43 11/05/19 12:03 Ativan IVPUSH 11/05/19 11:44 0.5 mg ONETIME ONE Administration Departure - Departure Time of Disposition: 12:26 Disposition: Refer to Observation Condition: Fair Clinical Impression: GI bleed Qualifiers: GI bleed type/associated pathology: unspecified gastrointestinal hemorrhage type Qualified Code(s): K92.2 - Gastrointestinal hemorrhage, unspecified Alcohol withdrawal Qualifiers: Complication of substance-induced condition: with unspecified complication Qualified Code(s): F10.239 - Alcohol dependence with withdrawal, unspecified - Discharge Information *PRESCRIPTION DRUG MONITORING PROGRAM REVIEWED*: Not Applicable *COPY OF PRESCRIPTION DRUG MONITORING REPORT IN PATIENT MEIR: Not Applicable Care Plan Goals: Discussed the patient's history lab results and treatments with Dr. Colón. Dr. Colón accepted the patient for continued evaluation and further management as an observation patient at [facility]. Sepsis Event Note - Focused Exam Vital Signs: Vital Signs Temp Pulse Resp BP Pulse Ox 11/05/19 11:42 37.0 C 101 H 20 135/91 H 99 Date Exam was Performed: 11/05/19 Time Exam was Performed: 12:23 - My Orders Last 24 Hours: My Active Orders 11/05/19 11:32 DRUG SCREEN URINE BIORAD [URCHEM] Stat UA RFX ISIDRO AND CULT IF INDIC [URIN] Urgent 11/05/19 11:42 Sodium Chloride 0.9% [Normal Saline] 1,000 ml IV .BOLUS 11/05/19 12:06 MVI w/Vit K 10 ML,Folic Acid 1 MG,Thiamine 100 MG in LR @ 999 MLS/HR MVI, Adult with Vitamin K [Infuvite Adult] 10 ml Folic Acid 1 mg Thiamine [Vitamin B-1] 100 mg Lactated Ringers [Ringers, Lactated] 1,000 ml IV ONETIME - Assessment/Plan Last 24 Hours: My Active Orders 11/05/19 11:32 DRUG SCREEN URINE BIORAD [URCHEM] Stat UA RFX ISIDRO AND CULT IF INDIC [URIN] Urgent 11/05/19 11:42 Sodium Chloride 0.9% [Normal Saline] 1,000 ml IV .BOLUS 11/05/19 12:06 MVI w/Vit K 10 ML,Folic Acid 1 MG,Thiamine 100 MG in LR @ 999 MLS/HR MVI, Adult with Vitamin K [Infuvite Adult] 10 ml Folic Acid 1 mg Thiamine [Vitamin B-1] 100 mg Lactated Ringers [Ringers, Lactated] 1,000 ml IV ONETIME
[2019-11-05 12:04] LABS: ANION GAP 20.2 mEq/L (7-13); CHLORIDE,CL 96 mmol/L (98-107); SODIUM,NA 136 mmol/L (136-145)
[2019-11-05] MEDS ORDERED: MVI, Adult with Vitamin K 10 ML, Folic Acid 1 MG, Thiamine 100 MG in Lactated Ringers 1... IV ONE ×4 (12:06)
[2019-11-05] MEDS ORDERED: LORazepam 2 MG/ML SDV IVPUSH PRN (13:09)
[2019-11-05] MEDS ORDERED: Nicotine 14 MG/24 Hr Patch TRDERM PRN (13:10)
[2019-11-05] MEDS ORDERED: NS + KCl 20mEq/L 1,000 ML IV SCH (13:15)
[2019-11-05] MEDS ORDERED: Potassium Chloride 10 MEQ Tab.ER PO ONE (13:15)
[2019-11-05] MEDS ORDERED: Pantoprazole 80 MG in Sodium Chloride 0.9% 100 ML IV SCH (13:15)
[2019-11-05] MEDS ORDERED: Ondansetron 4 MG Tab.DIS PO PRN (13:22)
[2019-11-05] MEDS ORDERED: Acetaminophen 325 MG Tab PO PRN (13:22)
[2019-11-05] MEDS ORDERED: Ondansetron 4 MG/2 ML SDV IVPUSH PRN (13:22)
[2019-11-05] MEDS ORDERED: Acetaminophen/HYDROcodone 325-10 MG Tab PO PRN (13:22)
[2019-11-05] MEDS ORDERED: Sodium Chloride 0.9% 10 ML Syringe FLUSH PRN (13:22)
[2019-11-05] MEDS ORDERED: Morphine 2 MG/ML SYRINGE IVPUSH PRN (13:22)
[2019-11-05] MEDS ORDERED: Pantoprazole 40 MG Vial IVPUSH ONE (13:30)
[2019-11-05] MEDS ORDERED: FOLIC ACID IV SCH ×4 (13:33)
[2019-11-05] MEDS ORDERED: MVI IV SCH ×4 (13:33)
[2019-11-05] MEDS ORDERED: [UNRECOGNIZED DRUG - OTHER] IV SCH ×4 (13:33)
[2019-11-05] MEDS ORDERED: VITAMIN K IV SCH ×4 (13:33)
[2019-11-05] MEDS ORDERED: THIAMINE IV SCH ×4 (13:33)
[2019-11-05] MEDS ORDERED: Heparin Sodium 5,000 Units/ML Vial SUBCUT SCH (14:00)
--- NOTE | 2019-11-05 14:01 | PCM.HP ---
H&P History of Present Illness - General Date of Service: 11/05/19 Admit Problem/Dx: Admission Diagnosis/Problem Admission Diagnosis/Problem Alcohol withdrawal syndrome Source of Information: Patient - History of Present Illness Initial Comments - Free Text/Narative: 19-year-old with a history of anxiety, alcohol abuse and addiction. He has a history of seizures with alcohol withdrawal. The patient has been off his medications of Paxil for a while. The patient has been drinking half a gallon of the vodka daily. On the day of admission the patient and noted the abdominal pain associated with red blood in stool. The pain was sharp, radiated to the back, improved since. He came into the emergency room and noted to have significant shaking. No fever, no chills, no shortness of breath. Has been feeling lightheaded. Bilateral Lower Abdomen Pain Score (Numeric/FACES): 5 - Related Data Allergies/Adverse Reactions: Allergies Allergy/AdvReac Type Severity Reaction Status Date / Time Penicillins Allergy Cannot Verified 11/05/19 13:01 Remember Home Medications: Home Meds . [No Known Home Meds] 02/28/19 [History] Past Medical History - Past Health History Medical/Surgical History: Denies Medical/Surgical History HEENT History: Reports: None Cardiovascular History: Reports: None Respiratory History: Reports: None Gastrointestinal History: Reports: None Genitourinary History: Reports: None Musculoskeletal History: Reports: Fracture, Other (See Below) Other Musculoskeletal History: Broke left collor bone Neurological History: Reports: Concussion, Seizure Other Neuro History: Alcoholic withdrawal Seizures Psychiatric History: Reports: Addiction, Anxiety, Depression, Psych Hospitalization(s), Suicide Attempt, Suicidal Ideation Endocrine/Metabolic History: Reports: None Hematologic History: Reports: None Immunologic History: Reports: None Oncologic (Cancer) History: Reports: None Dermatologic History: Reports: None - Past Surgical History GI Surgical History: Reports: Appendectomy Neurological Surgical History: Reports: None Musculoskeletal Surgical History: Reports: None Social & Family History - Family History Family Medical History: Noncontributory - Tobacco Use Smoking Status *Q: Current Every Day Smoker Years of Tobacco use: 9 Packs/Tins Daily: 0.5 Used Tobacco, but Quit: No - Caffeine Use Caffeine Use: Reports: Soda - Alcohol Use Days Per Week of Alcohol Use: 7 Number of Drinks Per Day: 15 Total Drinks Per Week: 105 Date of Last Drink: 11/05/19 Time of Last Drink: 02:00 - Recreational Drug Use Recreational Drug Use: No - Living Situation & Occupation Living situation: Reports: Alone Occupation: Unemployed H&P Review of Systems - Review of Systems: Review Of Systems: See Below General: Denies: Fever, Chills Pulmonary: Denies: Shortness of Breath, Hemoptysis Cardiovascular: Denies: Chest Pain, Edema Gastrointestinal: Reports: Abdominal Pain, Bloody Stool Genitourinary: Denies: Dysuria Psychiatric: Denies: Confusion Exam - Exam Exam: See Below - Vital Signs Vital Signs: Last Vital Signs Temp 98.6 F 11/05/19 11:42 Pulse 101 H 11/05/19 11:42 Resp 20 11/05/19 11:42 BP 135/91 H 11/05/19 11:42 Pulse Ox 99 11/05/19 11:42 Weight: 184 lb 6.4 oz - Exam Quality Assessment: Supplemental Oxygen General: Alert, Oriented Neck: Supple Lungs: Clear to Auscultation, Normal Respiratory Effort Cardiovascular: Regular Rate, Regular Rhythm GI/Abdominal Exam: Normal Bowel Sounds, Soft, Non-Tender Extremities: No Pedal Edema Skin: Warm, Dry Neuro Extensive - Mental Status: Alert, Oriented x3 Neuro Extensive - Motor, Sensory, Reflexes: Tremor Psychiatric: Alert, Normal Affect, Normal Mood - Patient Data Lab Results Last 24 hrs: Laboratory Results - last 24 hr 11/05/19 11/05/19 Range/Units 11:33 11:33 WBC 8.7 (5.0-10.0) 10^3/uL RBC 5.10 (4.6-6.2) 10^6/uL Hgb 17.1 D (14.0-18.0) g/dL Hct 47.2 (40.0-54.0) % MCV 92.5 (80-100) fL MCH 33.5 (27.0-34.0) pg MCHC 36.2 H (33.0-35.0) g/dL Plt Count 189 (150-450) 10^3/uL Neut % (Auto) 69.0 (42.2-75.2) % Lymph % (Auto) 25.6 (20.5-50.1) % [place] % (Auto) 4.6 (2-8) % Eos % (Auto) 0.5 L (1.0-3.0) % Baso % (Auto) 0.3 (0.0-1.0) % Sodium 136 (136-145) mmol/L Potassium 3.2 L (3.5-5.1) mmol/L Chloride 96 L (98-107) mmol/L Carbon Dioxide 23 (21-32) mmol/L Anion Gap 20.2 H (7-13) mEq/L BUN 9 (7-18) mg/dL Creatinine 1.00 (0.70-1.30) mg/dL Est Cr Clr Drug Dosing 116.85 mL/min Estimated GFR (MDRD) > 60 BUN/Creatinine Ratio 9.0 (No establ ref range) Glucose 94 (74-99) mg/dL Calcium 8.9 (8.5-10.1) mg/dL Total Bilirubin 1.2 H (0.2-1.0) mg/dL AST 56 H (15-37) U/L ALT 51 (16-63) U/L Alkaline Phosphatase 107 (46-116) U/L Total Protein 7.9 (6.4-8.2) g/dL Albumin 4.3 (3.4-5.0) g/dL Globulin 3.6 Albumin/Globulin Ratio 1.2 Ethyl Alcohol 51 (0) mg/dL Result Diagrams: 11/05/19 11:33 11/05/19 11:33 Leif Results Last 24 hrs: Microbiology 11/05/19 11:26 Stool Occult Blood (LEIF) - Final Stool / Feces - Problem List (1) GI bleed SNOMED Code(s): 19249262 ICD Code: K92.2 - GASTROINTESTINAL HEMORRHAGE, UNSPECIFIED Status: Acute Current Visit: Yes (2) Alcohol abuse SNOMED Code(s): 84900411 ICD Code: F10.10 - ALCOHOL ABUSE, UNCOMPLICATED Status: Acute Current Visit: No (3) Alcohol withdrawal syndrome SNOMED Code(s): 054158656 ICD Code: F10.239 - ALCOHOL DEPENDENCE WITH WITHDRAWAL, UNSPECIFIED Status : Acute Current Visit: No Qualifiers: Complication of substance-induced condition: with unspecified complication Qualified Code(s): F10.239 - Alcohol dependence with withdrawal, unspecified (4) Anxiety SNOMED Code(s): 76060251 ICD Code: F41.9 - ANXIETY DISORDER, UNSPECIFIED Status: Acute Current Visit: No Problem List Initiated/Reviewed/Updated: Yes Orders Last 24hrs: Active Orders 24 hr Category Date Time Status Admission Diagnosis [ADT] Urgent ADT 11/05/19 12:23 Ordered Admission Status [Patient Status] [ADT] Routine ADT 11/05/19 12:23 Active Antiembolic Devices [RC] PER UNIT ROUTINE Care 11/05/19 13:23 Ordered Oxygen Therapy [RC] PRN Care 11/05/19 13:22 Ordered Peripheral IV Care [RC] . DIRECTED Care 11/05/19 13:23 Ordered Up ad [place]idad [RC] ASDIRECTED Care 11/05/19 13:22 Ordered VTE/DVT Education [RC] PER UNIT ROUTINE Care 11/05/19 13:22 Ordered Vital Signs [RC] Q4H Care 11/05/19 13:22 Ordered Regular Diet [DIET] Diet 11/05/19 Dinner Ordered BASIC METABOLIC PANEL,BMP [CHEM] AM Lab 11/06/19 05:15 Ordered CBC WITH AUTO DIFF [HEME] AM Lab 11/06/19 05:15 Ordered DRUG SCREEN URINE BIORAD [URCHEM] Stat Lab 11/05/19 11:32 Ordered HEPATIC FUNCTION PANEL,HFP [CHEM] AM Lab 11/06/19 05:11 Ordered INR,PT,PROTHROMBIN TIME [COAG] AM Lab 11/06/19 05:15 Ordered LIPASE [CHEM] AM Lab 11/06/19 05:11 Ordered MAGNESIUM [CHEM] AM Lab 11/06/19 05:11 Ordered PHOSPHORUS [CHEM] AM Lab 11/06/19 05:11 Ordered UA RFX LEIF AND CULT IF INDIC [URIN] Urgent Lab 11/05/19 11:32 Ordered Acetaminophen [Tylenol] Med 11/05/19 13:22 Ordered 650 mg PO Q4H PRN Acetaminophen/HYDROcodone [[place] 325-10 MG] Med 11/05/19 13:22 Ordered 1 tab PO Q4H PRN Heparin Sodium Med 11/05/19 14:00 Ordered 5,000 units SUBCUT Q8HR LORazepam [Ativan] Med 11/05/19 13:09 Active See Protocol IVPUSH TITRATE PRN LORazepam [Ativan] Med 11/05/19 13:10 Active See Protocol PO TITRATE PRN MVI, Adult with Vitamin K [Infuvite Adult] 10 ml Med 11/06/19 09:00 Active Thiamine [Vitamin B-1] 100 mg Folic Acid 1 mg NS + KCl 20mEq/L [Normal Saline with 20 mEq KCl] 1,000 ml IV ASDIRECTED Morphine Med 11/05/19 13:22 Ordered 2 mg IVPUSH Q2H PRN NS + KCl 20mEq/L [Normal Saline with 20 mEq KCl] 1,000 Med 11/05/19 13:45 Active ml IV ASDIRECTED Nicotine [Habitrol] Med 11/05/19 13:10 Active 14 mg TRDERM DAILY PRN Ondansetron [Zofran ODT] Med 11/05/19 13:22 Ordered 4 mg PO Q6H PRN Ondansetron [Zofran] Med 11/05/19 13:22 Ordered 4 mg IVPUSH Q6H PRN Pantoprazole [ProTONIX] Med 11/05/19 16:00 Active 40 mg PO BIDAC Sodium Chloride 0.9% [Saline Flush] Med 11/05/19 13:22 Ordered 10 ml FLUSH ASDIRECTED PRN Antiembolic Hose [OM.PC] Per Unit Routine Oth 11/05/19 13:22 Ordered Peripheral IV Insertion Adult [OM.PC] Routine Oth 11/05/19 13:22 Ordered Resuscitation Status Routine Resus Stat 11/05/19 13:22 Ordered Medication Orders Acetaminophen (Tylenol) 650 mg PO Q4H PRN PRN Reason: Pain (Mild 1-3)/fever Hydrocodone Bitart/Acetaminophen ([place] 325-10 Mg) 1 tab PO Q4H PRN PRN Reason: Pain (moderate 4-6) Heparin Sodium (Porcine) (Heparin Sodium) 5,000 units SUBCUT Q8HR YOSHI Potassium Chloride/Sodium Chloride (Normal Saline With 20 Meq Kcl) 1,000 mls @ 150 mls/hr IV ASDIRECTED YOSHI Multivitamins/Minerals 10 ml/Thiamine HCl 100 mg/ Folic Acid 1 mg/ Potassium Chloride/Sodium Chloride 1,011.2 mls @ 151.68 mls/hr IV ASDIRECTED YOSHI Lorazepam (Ativan) 0 mg IVPUSH TITRATE PRN; Protocol PRN Reason: [facility] protocol Lorazepam (Ativan) 0 mg PO TITRATE PRN; Protocol PRN Reason: [facility] protocol Morphine Sulfate (Morphine) 2 mg IVPUSH Q2H PRN PRN Reason: Pain (severe 7-10) Nicotine (Habitrol) 14 mg TRDERM DAILY PRN PRN Reason: nicotine craving Ondansetron HCl (Zofran Odt) 4 mg PO Q6H PRN PRN Reason: nausea, able to take PO Ondansetron HCl (Zofran) 4 mg IVPUSH Q6H PRN PRN Reason: Nausea/Vomiting Pantoprazole Sodium (Protonix) 40 mg PO BIDAC YOSHI Sodium Chloride (Saline Flush) 10 ml FLUSH ASDIRECTED PRN PRN Reason: Keep Vein Open Assessment/Plan Comment:: 19-year-old gentleman who presented with the bright red blood in stool, tremors , abdominal pain. Has a history of Daily Drinking about Half Gallon of Vodka. Alcohol withdrawal, acute Story of alcohol withdrawal seizures We'll give the patient Ativan per [facility] protocol IV fluids with IV electrolyte replacement Chronic alcohol use Give thiamine, folate, multivitamin Will need alcohol cessation counseling Bright red blood per rectum Likely lower GI bleed Possible hemorrhoidal, Less likely variceal, upper GI Currently hemodynamically stable We'll monitor hemoglobin and further bleeding Start the patient on Protonix IV and by mouth Abdominal pain Might relate to GI bleed If further pain consider CT abdomen Check LFTs and lipase in the morning DVT prophylaxis with SCDs Hold Heparin with concern of bleeding
[2019-11-05] MEDS: NS + KCl 20mEq/L 1,000 ML IV SCH ×2 (14:04→21:03)
[2019-11-05] MEDS: LORazepam 1 MG Tab PO PRN (14:06)
[2019-11-06] MEDS: LORazepam 1 MG Tab PO PRN (01:32)
[2019-11-06] MEDS: NS + KCl 20mEq/L 1,000 ML IV SCH (03:18)
[2019-11-06] MEDS ORDERED: Pantoprazole 40 MG Tab.CR PO SCH (06:00)
[2019-11-06 06:51] LABS: ANION GAP 13.2 mEq/L (7-13); CHLORIDE,CL 99 mmol/L (98-107); SODIUM,NA 135 mmol/L (136-145)
[2019-11-06] MEDS ORDERED: MVI, Adult with Vitamin K 10 ML SDV IV SCH (09:00)
[2019-11-06] MEDS ORDERED: THIAMINE IV SCH ×4 (09:00)
[2019-11-06] MEDS ORDERED: Folic Acid 50 MG/10 ML MDV IV SCH (09:00)
[2019-11-06] MEDS ORDERED: FOLIC ACID IV SCH ×4 (09:00)
[2019-11-06] MEDS ORDERED: [UNRECOGNIZED DRUG - OTHER] IV SCH ×4 (09:00)
[2019-11-06] MEDS ORDERED: MVI IV SCH ×4 (09:00)
[2019-11-06] MEDS ORDERED: VITAMIN K IV SCH ×4 (09:00)
[2019-11-06] MEDS ORDERED: Thiamine 200 MG/2 ML MDV IV SCH (09:00)
--- NOTE | 2019-11-06 12:03 | PCM.DCSUM1 ---
Discharge Summary - Hospital Course Free Text/Narrative:: 19-year-old gentleman who presented with the bright red blood in stool, tremors , abdominal pain. Has a history of Daily Drinking about Half Gallon of Vodka. Alcohol withdrawal, acute history of alcohol withdrawal seizures treated with Ativan per [facility] protocol, IV fluids with IV electrolyte replacement Chronic alcohol use Given thiamine, folate, multivitamin had alcohol cessation counseling - plan for treatment in residential CRU tomorrow Bright red blood per rectum Likely lower GI bleed Possible hemorrhoidal, Less likely variceal, upper GI resolved, remained hemodynamically stable cont ppi for 2 weeks Abdominal pain resolved Diagnosis: Stroke: No - Discharge Data Discharge Date: 11/06/19 Discharge Disposition: Home, Self-Care 01 Condition: Good - Referral to Home Health Primary Care Physician: PCP Unobtainable - Discharge Diagnosis/Problem(s) (1) GI bleed SNOMED Code(s): 90240433 ICD Code: K92.2 - GASTROINTESTINAL HEMORRHAGE, UNSPECIFIED Status: Acute Current Visit: Yes (2) Alcohol abuse SNOMED Code(s): 23467099 ICD Code: F10.10 - ALCOHOL ABUSE, UNCOMPLICATED Status: Acute Current Visit: No (3) Alcohol withdrawal syndrome SNOMED Code(s): 629023722 ICD Code: F10.239 - ALCOHOL DEPENDENCE WITH WITHDRAWAL, UNSPECIFIED Status : Acute Current Visit: No Qualifiers: Complication of substance-induced condition: with unspecified complication Qualified Code(s): F10.239 - Alcohol dependence with withdrawal, unspecified (4) Anxiety SNOMED Code(s): 43331209 ICD Code: F41.9 - ANXIETY DISORDER, UNSPECIFIED Status: Acute Current Visit: No - Patient Instructions Diet: Usual Diet as Tolerated Activity: As Tolerated - Discharge Plan *PRESCRIPTION DRUG MONITORING PROGRAM REVIEWED*: Not Applicable *COPY OF PRESCRIPTION DRUG MONITORING REPORT IN PATIENT MEIR: Not Applicable Prescriptions/Med Rec: LORazepam [Ativan] 1 mg PO Q6H PRN #4 tablet PRN Reason: tremor, anxiety Pantoprazole [ProTONIX] 40 mg PO DAILY #14 tab.cr Home Medications: Home Meds LORazepam [Ativan] 1 mg PO Q6H PRN #4 tablet 11/06/19 [Rx] Pantoprazole [ProTONIX] 40 mg PO DAILY #14 tab.cr 05/28/20 [Rx] Oxygen Therapy Mode: Room Air - Discharge Summary/Plan Comment DC Time >30 min.: No - Patient Data Vitals - Most Recent: Last Vital Signs Temp 97.6 F 11/06/19 08:00 Pulse 65 11/06/19 08:00 Resp 18 11/06/19 08:00 BP 123/74 11/06/19 08:00 Pulse Ox 97 11/06/19 08:00 Weight - Most Recent: 184 lb 6.4 oz I&O - Last 24 hours: Intake & Output 11/05/19 11/06/19 11/06/19 22:59 06:59 14:59 Intake Total 1527 1606 395 Output Total 1350 Balance 1527 256 395 Lab Results - Last 24 hrs: Laboratory Results - last 24 hr 11/05/19 11/05/19 11/05/19 Range/Units 11:33 13:55 13:55 WBC (5.0-10.0) 10^3/uL RBC (4.6-6.2) 10^6/uL Hgb (14.0-18.0) g/dL Hct (40.0-54.0) % MCV (80-100) fL MCH (27.0-34.0) pg MCHC (33.0-35.0) g/dL Plt Count (150-450) 10^3/uL Neut % (Auto) (42.2-75.2) % Lymph % (Auto) (20.5-50.1) % [place] % (Auto) (2-8) % Eos % (Auto) (1.0-3.0) % Baso % (Auto) (0.0-1.0) % PT (9.0-12.0) SEC INR (0.9-1.2) Sodium 136 (136-145) mmol/L Potassium 3.2 L (3.5-5.1) mmol/L Chloride 96 L (98-107) mmol/L Carbon Dioxide 23 (21-32) mmol/L Anion Gap 20.2 H (7-13) mEq/L BUN 9 (7-18) mg/dL Creatinine 1.00 (0.70-1.30) mg/dL Est Cr Clr Drug Dosing 116.85 mL/min Estimated GFR (MDRD) > 60 BUN/Creatinine Ratio 9.0 (No establ ref range) Glucose 94 (74-99) mg/dL Calcium 8.9 (8.5-10.1) mg/dL Phosphorus (2.6-4.7) mg/dL Magnesium (1.8-2.4) mg/dL Total Bilirubin 1.2 H (0.2-1.0) mg/dL Direct Bilirubin (0.0-0.2) mg/dL Indirect Bilirubin AST 56 H (15-37) U/L ALT 51 (16-63) U/L Alkaline Phosphatase 107 (46-116) U/L Total Protein 7.9 (6.4-8.2) g/dL Albumin 4.3 (3.4-5.0) g/dL Globulin 3.6 Albumin/Globulin Ratio 1.2 Lipase (73-393) U/L Urine Color Yellow (YELLOW) Urine Appearance Slightly cloudy (CLEAR) Urine pH 7.0 (5.0-9.0) Ur Specific [place] 1.025 (1.005-1.030) Urine Protein Negative (NEGATIVE) Urine Glucose (UA) Negative (NEGATIVE) Urine Ketones 15 H (NEGATIVE) Urine Occult Blood Negative (NEGATIVE) Urine Nitrite Negative (NEGATIVE) Urine Bilirubin Negative (NEGATIVE) Urine Urobilinogen 0.2 (0.2-1.0) mg/dL Ur Leukocyte Esterase Negative (NEGATIVE) Urine Opiates Screen Negative (NEGATIVE) Ur Oxycodone Screen Negative (NEGATIVE) Urine Methadone Screen Negative (NEGATIVE) Ur Barbiturates Screen Negative (NEGATIVE) U Tricyclic Antidepress Negative (NEGATIVE) Ur Phencyclidine Scrn Negative (NEGATIVE) Ur Amphetamine Screen Negative (NEGATIVE) U Methamphetamines Scrn Negative (NEGATIVE) Urine MDMA Screen Negative (NEGATIVE) U Benzodiazepines Scrn Negative (NEGATIVE) Urine Cocaine Screen Negative (NEGATIVE) U Marijuana (THC) Screen Negative (NEGATIVE) Ethyl Alcohol 51 (0) mg/dL 11/06/19 11/06/19 11/06/19 Range/Units 05:58 05:58 05:58 WBC 5.8 (5.0-10.0) 10^3/uL RBC 4.73 (4.6-6.2) 10^6/uL Hgb 15.9 (14.0-18.0) g/dL Hct 44.6 (40.0-54.0) % MCV 94.3 (80-100) fL MCH 33.6 (27.0-34.0) pg MCHC 35.7 H (33.0-35.0) g/dL Plt Count 153 (150-450) 10^3/uL Neut % (Auto) 78.6 H (42.2-75.2) % Lymph % (Auto) 14.5 L (20.5-50.1) % [place] % (Auto) 5.7 (2-8) % Eos % (Auto) 0.7 L (1.0-3.0) % Baso % (Auto) 0.5 (0.0-1.0) % PT 10.4 (9.0-12.0) SEC INR 1.1 (0.9-1.2) Sodium 135 L (136-145) mmol/L Potassium 4.2 (3.5-5.1) mmol/L Chloride 99 (98-107) mmol/L Carbon Dioxide 27 (21-32) mmol/L Anion Gap 13.2 H (7-13) mEq/L BUN 7 (7-18) mg/dL Creatinine 0.97 (0.70-1.30) mg/dL Est Cr Clr Drug Dosing 120.47 mL/min Estimated GFR (MDRD) > 60 BUN/Creatinine Ratio (No establ ref range) Glucose 95 (74-99) mg/dL Calcium 8.9 (8.5-10.1) mg/dL Phosphorus 2.6 (2.6-4.7) mg/dL Magnesium 1.7 L (1.8-2.4) mg/dL Total Bilirubin 1.8 H (0.2-1.0) mg/dL Direct Bilirubin 0.4 H (0.0-0.2) mg/dL Indirect Bilirubin 1.4 AST 35 (15-37) U/L ALT 39 (16-63) U/L Alkaline Phosphatase 97 (46-116) U/L Total Protein 7.3 (6.4-8.2) g/dL Albumin 3.8 (3.4-5.0) g/dL Globulin 3.5 Albumin/Globulin Ratio 1.1 Lipase 207 (73-393) U/L Urine Color (YELLOW) Urine Appearance (CLEAR) Urine pH (5.0-9.0) Ur Specific [place] (1.005-1.030) Urine Protein (NEGATIVE) Urine Glucose (UA) (NEGATIVE) Urine Ketones (NEGATIVE) Urine Occult Blood (NEGATIVE) Urine Nitrite (NEGATIVE) Urine Bilirubin (NEGATIVE) Urine Urobilinogen (0.2-1.0) mg/dL Ur Leukocyte Esterase (NEGATIVE) Urine Opiates Screen (NEGATIVE) Ur Oxycodone Screen (NEGATIVE) Urine Methadone Screen (NEGATIVE) Ur Barbiturates Screen (NEGATIVE) U Tricyclic Antidepress (NEGATIVE) Ur Phencyclidine Scrn (NEGATIVE) Ur Amphetamine Screen (NEGATIVE) U Methamphetamines Scrn (NEGATIVE) Urine MDMA Screen (NEGATIVE) U Benzodiazepines Scrn (NEGATIVE) Urine Cocaine Screen (NEGATIVE) U Marijuana (THC) Screen (NEGATIVE) Ethyl Alcohol (0) mg/dL ISIDRO Results - Last 24 hrs: Microbiology 11/05/19 11:26 Stool Occult Blood (ISIDRO) - Final Stool / Feces Med Orders - Current: Current Medications Acetaminophen (Tylenol) 650 mg PO Q4H PRN PRN Reason: Pain (Mild 1-3)/fever Hydrocodone Bitart/Acetaminophen ([place] 325-10 Mg) 1 tab PO Q4H PRN PRN Reason: Pain (moderate 4-6) Potassium Chloride/Sodium Chloride (Normal Saline With 20 Meq Kcl) 1,000 mls @ 150 mls/hr IV ASDIRECTED [facility] Last Admin: 11/06/19 03:18 Dose: 150 mls/hr Multivitamins/Minerals 10 ml/Thiamine HCl 100 mg/ Folic Acid 1 mg/ Potassium Chloride/Sodium Chloride 1,011.2 mls @ 151.68 mls/hr IV ASDIRECTED [facility] Last Admin: 11/06/19 11:52 Dose: 151.68 mls/hr Lorazepam (Ativan) 0 mg IVPUSH TITRATE PRN; Protocol PRN Reason: [facility] protocol Lorazepam (Ativan) 0 mg PO TITRATE PRN; Protocol PRN Reason: ciky protocol Last Admin: 11/06/19 01:32 Dose: 1 mg Magnesium Oxide (Magnesium Oxide) 500 mg PO BIDM [facility] Stop: 11/06/19 18:01 Last Admin: 11/06/19 11:51 Dose: 500 mg Morphine Sulfate (Morphine) 2 mg IVPUSH Q2H PRN PRN Reason: Pain (severe 7-10) Nicotine (Habitrol) 14 mg TRDERM DAILY PRN PRN Reason: nicotine craving Ondansetron HCl (Zofran Odt) 4 mg PO Q6H PRN PRN Reason: nausea, able to take PO Ondansetron HCl (Zofran) 4 mg IVPUSH Q6H PRN PRN Reason: Nausea/Vomiting Pantoprazole Sodium (Protonix) 40 mg PO BIDAC [facility] Last Admin: 11/06/19 05:31 Dose: 40 mg Sodium Chloride (Saline Flush) 10 ml FLUSH ASDIRECTED PRN PRN Reason: Keep Vein Open Discontinued Medications Heparin Sodium (Porcine) (Heparin Sodium) 5,000 units SUBCUT Q8HR [facility] Last Admin: 11/05/19 14:05 Dose: Not Given Sodium Chloride (Normal Saline) 1,000 mls @ 999 mls/hr IV .BOLUS ONE Stop: 11/05/19 12:42 Last Admin: 11/05/19 12:02 Dose: 999 mls/hr Multivitamins/Minerals 10 ml/Folic Acid 1 mg/ Thiamine HCl 100 mg/ Lactated Ringer's 1,011.2 mls @ 999 mls/hr IV ONETIME ONE Stop: 11/05/19 13:06 Last Admin: 11/05/19 12:30 Dose: 999 mls/hr Potassium Chloride/Sodium Chloride (Normal Saline With 20 Meq Kcl) 1,000 mls @ 150 mls/hr IV ASDIRECTED [facility] Lorazepam (Ativan) 0.5 mg IVPUSH ONETIME ONE Stop: 11/05/19 11:44 Last Admin: 11/05/19 12:03 Dose: 0.5 mg Pantoprazole Sodium (Protonix Iv) 80 mg IVPUSH ONETIME ONE Stop: 11/05/19 13:31 Last Admin: 11/05/19 14:07 Dose: 80 mg Potassium Chloride (Klor-Con 10) 40 meq PO ONETIME ONE Stop: 11/05/19 13:16 Last Admin: 11/05/19 14:06 Dose: 40 meq
[2019-11-06 13:38] VITALS: BP 142/76; PULSE 88
== END 2019-11-06 14:30 | disposition home or self-care (01) ==
LOC: DL.ED 11:18 → DL.MS 12:23 → DL.ED 12:50
PROVIDERS: ADMIT Internal Medicine; ATTEND Internal Medicine
DX: K92.2 Gastrointestinal hemorrhage, unspecified (principal); F10.239 Alcohol dependence with withdrawal, unspecified; F41.9 Anxiety disorder, unspecified; F17.210 Nicotine dependence, cigarettes, uncomplicated; F32.9 Major depressive disorder, single episode, unspecified; Z88.0 Allergy status to penicillin; Z71.41 Alcohol abuse counseling and surveillance of alcoholic; Y90.0 Blood alcohol level of less than 20 mg/100 ml; Z79.899 Other long term (current) drug therapy
CPT/HCPCS: 36415; 80048; 80053; 80076; 80305; 80307; 81003; 82272; 83690; 83735; 84100; 85025; 85610; 96374; 96375; 99285; A9270; C9113; J2060; J3411; J3480; J7030; J7120; 96361; 96365; 96366; G0378; J3490

== ENCOUNTER 2019-11-23 17:05 | Emergency (ER) | payer MEDICAID ==
[2019-11-23] MEDS ORDERED: Sodium Chloride 0.9% 10 ML Syringe FLUSH PRN (17:08)
[2019-11-23 17:17] VITALS: BP 147/102; PULSE 102
[2019-11-23 17:55] LABS: ANION GAP 18.9 mEq/L (7-13); CHLORIDE,CL 95 mmol/L (98-107); SODIUM,NA 135 mmol/L (136-145)
--- NOTE | 2019-11-23 18:15 | EDM.PDOCBH ---
<Ana Chand - Last Filed: 11/23/19 20:03> ED HPI GENERAL MEDICAL PROBLEM - General Chief Complaint: Drug or Alcohol Abuse Stated Complaint: kidney pain Time Seen by Provider: 11/23/19 18:14 - Related Data Allergies Allergy/AdvReac Type Severity Reaction Status Date / Time Penicillins Allergy Cannot Verified 11/23/19 17:18 Remember Home Meds: Home Meds LORazepam [Ativan] 1 mg PO Q6H PRN #4 tablet 11/06/19 [Rx] Pantoprazole [ProTONIX] 40 mg PO DAILY #14 tab.cr 11/06/19 [Rx] COURSE, BEHAVIORAL HEALTH COMP - Course Vital Signs: Last Vital Signs Temp 97.6 F 11/23/19 17:16 Pulse 102 H 11/23/19 17:16 Resp 16 11/23/19 17:16 BP 147/102 H 11/23/19 17:16 Pulse Ox 98 11/23/19 17:16 Orders, Labs, Meds: Active Orders 24 hr Category Date Time Status Peripheral IV Care [RC] . DIRECTED Care 11/23/19 17:09 Active Peripheral IV Insertion Adult [OM.PC] Stat Oth 11/23/19 17:08 Ordered Laboratory Tests 11/23/19 11/23/19 11/23/19 Range/Units 17:08 17:08 17:26 WBC 7.0 (5.0-10.0) 10^3/uL RBC 5.23 (4.6-6.2) 10^6/uL Hgb 17.4 D (14.0-18.0) g/dL Hct 48.2 (40.0-54.0) % MCV 92.2 (80-100) fL MCH 33.3 (27.0-34.0) pg MCHC 36.1 H (33.0-35.0) g/dL Plt Count 301 D (150-450) 10^3/uL Neut % (Auto) 79.3 H (42.2-75.2) % Lymph % (Auto) 14.2 L (20.5-50.1) % [place] % (Auto) 5.3 (2-8) % Eos % (Auto) 0.1 L (1.0-3.0) % Baso % (Auto) 1.1 H (0.0-1.0) % Sodium (136-145) mmol/L Potassium (3.5-5.1) mmol/L Chloride (98-107) mmol/L Carbon Dioxide (21-32) mmol/L Anion Gap (7-13) mEq/L BUN (7-18) mg/dL Creatinine (0.70-1.30) mg/dL Est Cr Clr Drug Dosing mL/min Estimated GFR (MDRD) BUN/Creatinine Ratio (No establ ref range) Glucose (74-99) mg/dL Calcium (8.5-10.1) mg/dL Total Bilirubin (0.2-1.0) mg/dL AST (15-37) U/L ALT (16-63) U/L Alkaline Phosphatase (46-116) U/L Total Protein (6.4-8.2) g/dL Albumin (3.4-5.0) g/dL Globulin Albumin/Globulin Ratio Urine Color Yellow (YELLOW) Urine Appearance Clear (CLEAR) Urine pH 6.5 (5.0-9.0) Ur Specific [place] 1.025 (1.005-1.030) Urine Protein 30 H (NEGATIVE) Urine Glucose (UA) Negative (NEGATIVE) Urine Ketones 15 H (NEGATIVE) Urine Occult Blood Trace-intact H (NEGATIVE) Urine Nitrite Negative (NEGATIVE) Urine Bilirubin Negative (NEGATIVE) Urine Urobilinogen 4.0 H (0.2-1.0) mg/dL Ur Leukocyte Esterase Negative (NEGATIVE) Urine RBC 0-5 /HPF Urine WBC 0-5 (0-5/HPF) /HPF Ur Epithelial Cells Rare (NOT SEEN) /HPF Urine Bacteria Not seen (0-FEW/HPF) /HPF Urine Mucus Moderate H (NOT SEEN) /LPF Urine Opiates Screen Negative (NEGATIVE) Ur Oxycodone Screen Negative (NEGATIVE) Urine Methadone Screen Negative (NEGATIVE) Ur Barbiturates Screen Negative (NEGATIVE) U Tricyclic Antidepress Negative (NEGATIVE) Ur Phencyclidine Scrn Negative (NEGATIVE) Ur Amphetamine Screen Negative (NEGATIVE) U Methamphetamines Scrn Negative (NEGATIVE) Urine MDMA Screen Negative (NEGATIVE) U Benzodiazepines Scrn Negative (NEGATIVE) Urine Cocaine Screen Negative (NEGATIVE) U Marijuana (THC) Screen Negative (NEGATIVE) Ethyl Alcohol (0) mg/dL 11/23/19 Range/Units 17:26 WBC (5.0-10.0) 10^3/uL RBC (4.6-6.2) 10^6/uL Hgb (14.0-18.0) g/dL Hct (40.0-54.0) % MCV (80-100) fL MCH (27.0-34.0) pg MCHC (33.0-35.0) g/dL Plt Count (150-450) 10^3/uL Neut % (Auto) (42.2-75.2) % Lymph % (Auto) (20.5-50.1) % [place] % (Auto) (2-8) % Eos % (Auto) (1.0-3.0) % Baso % (Auto) (0.0-1.0) % Sodium 135 L (136-145) mmol/L Potassium 3.9 (3.5-5.1) mmol/L Chloride 95 L (98-107) mmol/L Carbon Dioxide 25 (21-32) mmol/L Anion Gap 18.9 H (7-13) mEq/L BUN 13 (7-18) mg/dL Creatinine 1.08 (0.70-1.30) mg/dL Est Cr Clr Drug Dosing 108.20 mL/min Estimated GFR (MDRD) > 60 BUN/Creatinine Ratio 12.0 (No establ ref range) Glucose 129 H (74-99) mg/dL Calcium 9.1 (8.5-10.1) mg/dL Total Bilirubin 1.4 H (0.2-1.0) mg/dL AST 51 H (15-37) U/L ALT 55 (16-63) U/L Alkaline Phosphatase 101 (46-116) U/L Total Protein 7.9 (6.4-8.2) g/dL Albumin 4.2 (3.4-5.0) g/dL Globulin 3.7 Albumin/Globulin Ratio 1.1 Urine Color (YELLOW) Urine Appearance (CLEAR) Urine pH (5.0-9.0) Ur Specific [place] (1.005-1.030) Urine Protein (NEGATIVE) Urine Glucose (UA) (NEGATIVE) Urine Ketones (NEGATIVE) Urine Occult Blood (NEGATIVE) Urine Nitrite (NEGATIVE) Urine Bilirubin (NEGATIVE) Urine Urobilinogen (0.2-1.0) mg/dL Ur Leukocyte Esterase (NEGATIVE) Urine RBC /HPF Urine WBC (0-5/HPF) /HPF Ur Epithelial Cells (NOT SEEN) /HPF Urine Bacteria (0-FEW/HPF) /HPF Urine Mucus (NOT SEEN) /LPF Urine Opiates Screen (NEGATIVE) Ur Oxycodone Screen (NEGATIVE) Urine Methadone Screen (NEGATIVE) Ur Barbiturates Screen (NEGATIVE) U Tricyclic Antidepress (NEGATIVE) Ur Phencyclidine Scrn (NEGATIVE) Ur Amphetamine Screen (NEGATIVE) U Methamphetamines Scrn (NEGATIVE) Urine MDMA Screen (NEGATIVE) U Benzodiazepines Scrn (NEGATIVE) Urine Cocaine Screen (NEGATIVE) U Marijuana (THC) Screen (NEGATIVE) Ethyl Alcohol 155 (0) mg/dL Medications Discontinued Medications Generic Name Dose Route Start Last Admin Trade Name Freq PRN Reason Stop Dose Admin Famotidine 20 mg 11/23/19 19:07 11/23/19 19:16 Pepcid IVPUSH 11/23/19 19:08 20 mg ONETIME ONE Administration Sodium Chloride 1,000 mls @ 999 mls/hr 11/23/19 18:22 11/23/19 18:29 Normal Saline IV 11/23/19 19:22 999 mls/hr .BOLUS ONE Administration Multivitamins/Minerals 10 ml/ 1,011.2 mls @ 999 mls/hr 11/23/19 19:21 19:33 Folic Acid 1 mg/ Thiamine HCl IV 11/23/19 20:21 999 mls/hr 100 mg/ Lactated Ringer's ONETIME ONE Administration Lorazepam 1 mg 11/23/19 18:22 11/23/19 18:29 Ativan IVPUSH 11/23/19 18:23 1 mg ONETIME ONE Administration Ondansetron HCl 4 mg 11/23/19 18:22 11/23/19 18:32 Zofran IV 11/23/19 18:23 4 mg ONETIME ONE Administration Sodium Chloride 10 ml 11/23/19 17:08 11/23/19 19:01 Saline Flush FLUSH 10 ml ASDIRECTED PRN Administration Keep Vein Open Departure - Departure Time of Disposition: 20:03 Disposition: Home, Self-Care 01 Condition: Good Clinical Impression: Alcohol abuse Gastritis Qualifiers: Gastritis type: alcoholic Chronicity: acute Gastritis bleeding: without bleeding Qualified Code(s): K29.20 - Alcoholic gastritis without bleeding - Discharge Information *PRESCRIPTION DRUG MONITORING PROGRAM REVIEWED*: No *COPY OF PRESCRIPTION DRUG MONITORING REPORT IN PATIENT MEIR: No Instructions: Alcohol Use Disorder Referrals: PCP,None [Primary Care Provider] - Forms: ED Department Discharge Additional Instructions: decrease or stop alcohol use light bland diet follow up with addiction counseling services - My Orders Last 24 Hours: My Active Orders 11/23/19 17:08 Peripheral IV Insertion Adult [OM.PC] Stat 11/23/19 17:09 Peripheral IV Care [RC] . DIRECTED - Assessment/Plan Last 24 Hours: My Active Orders 11/23/19 17:08 Peripheral IV Insertion Adult [OM.PC] Stat 11/23/19 17:09 Peripheral IV Care [RC] . DIRECTED <Lola Sepulveda - Last Filed: 11/24/19 07:35> ED HPI GENERAL MEDICAL PROBLEM - General Source of Information: Reports: Patient, Family, RN, RN Notes Reviewed History Limitations: Reports: Intoxication - History of Present Illness INITIAL COMMENTS - FREE TEXT/NARRATIVE: And alcohol withdrawals. Patient states he was admitted to the hospital here at the end of October and stayed in the hospital for a day. Patient states he has not drank alcohol since being hospitalized, yet did not get his prescriptions filled for Ativan or Protonix that were prescribed upon discharge. Patient states last night he did drink alcohol, a half a gallon of vodka, with his last shot being at 8:00 this morning. Patient is very anxious, states he feels sweaty at times. Denies a headache. Denies auditory hallucinations, but states he did see lights moving that were not there. Patient is nauseated and states he has been vomiting and has been able unable to keep anything down. Patient complains of right and left flank pain. Patient has history of alcohol withdrawal and seizures with alcohol withdrawal. Onset: Gradual Duration: Intermittent Location: Reports: Back Left Abdomen Pain Score (Numeric/FACES): 10 Right Back Pain Score (Numeric/FACES): 10 CIWAA - CIWAA CIWAA Nausea And Vomitin CIWAA Tremor: 1 - Not Visable, but Can Be [place] Fingertip to Fingertip CIWAA Paroxysmal Sweats: 0 - No Sweat Visible CIWAA Anxiety: 4 - Moderately Anxious, or Guarded, so Anxiety is Inferred CIWAA Agitation: 1 -Somewhat More than Normal Activity CIWAA Tactile Disturbances: 1 - Very Mild Itching, Pins and [place], Burning or Numbness CIWAA Auditory Disturbances: 0 - Not Present CIWAA Visual Disturbances: 1 - Very Mild Sensitivity CIWAA Headache, Fullness in Head: 0 - Not Present CIWAA Orientation And Clouding Of Sensorium: 0 - Oriented and Can do Serial Additions CIWAA Scale Score: 13 Past Medical History - Past Health History Medical/Surgical History: Denies Medical/Surgical History HEENT History: Reports: None Cardiovascular History: Reports: None Respiratory History: Reports: None Gastrointestinal History: Reports: None Genitourinary History: Reports: None Musculoskeletal History: Reports: Fracture, Other (See Below) Other Musculoskeletal History: Broke left collor bone Neurological History: Reports: Concussion, Seizure Other Neuro History: Alcoholic withdrawal Seizures Psychiatric History: Reports: Addiction, Anxiety, Depression, Psych Hospitalization(s), Suicide Attempt, Suicidal Ideation Endocrine/Metabolic History: Reports: None Hematologic History: Reports: None Immunologic History: Reports: None Oncologic (Cancer) History: Reports: None Dermatologic History: Reports: None - Past Surgical History GI Surgical History: Reports: Appendectomy Neurological Surgical History: Reports: None Musculoskeletal Surgical History: Reports: None Social & Family History - Family History Family Medical History: Noncontributory - Caffeine Use Caffeine Use: Reports: Soda - Living Situation & Occupation Living situation: Reports: Alone Occupation: Unemployed ED ROS GENERAL - Review of Systems Review Of Systems: Comprehensive ROS is negative, except as noted in HPI. ED EXAM, BEHAVIORAL HEALTH - Physical Exam Exam: See Below Exam Limited By: Intoxication General Appearance: Alert, WD/WN, Anxious, Moderate Distress Eye Exam: Bilateral Eye: EOMI, Normal Inspection Ears: Normal External Exam, Hearing Grossly Normal Nose: Normal Inspection Throat/Mouth: Normal Inspection, Normal Voice, No Airway Compromise Head: Atraumatic, Normocephalic Neck: Normal Inspection, Supple, Non-Tender, Full Range of Motion Respiratory/Chest: No Respiratory Distress, Lungs Clear, Normal Breath Sounds, No Accessory Muscle Use, Chest Non-Tender Cardiovascular: Normal Peripheral Pulses, Regular Rate, Rhythm, No Edema, No Gallop, No JVD, No Murmur, No Rub GI/Abdominal: Normal Bowel Sounds, Soft, No Organomegaly, No Distention, No Abnormal Bruit, No Mass, Tender (Male) Exam: Deferred Rectal (Males) Exam: Deferred Back Exam: Normal Inspection, Full Range of Motion, CVA Tenderness (L), CVA Tenderness (R) Extremities: Normal Inspection, Normal Range of Motion, Non-Tender, Normal Capillary Refill, No Pedal Edema Neurological: Alert, CN II-XII Intact, Normal Cognition, Normal Gait, Normal Reflexes, No Motor/Sensory Deficits, Oriented x 3 Psychiatric: Alert, Oriented, Restless, Tearful, Agitated, Poor Eye Contact, Visual Hallucinations Skin Exam: Warm, Dry, Intact, Normal color, No rash, Tattoo(s) Sepsis Event Note (ED) - Evaluation Sepsis Screening Result: No Definite Risk
[2019-11-23] MEDS ORDERED: Ondansetron 4 MG/2 ML SDV IV ONE (18:22)
[2019-11-23] MEDS ORDERED: LORazepam 2 MG/ML SDV IVPUSH ONE (18:22)
[2019-11-23] MEDS ORDERED: Sodium Chloride 0.9% 1,000 ML IV ONE (18:22)
[2019-11-23] MEDS ORDERED: Famotidine 20 MG/2 ML SDV IVPUSH ONE (19:07)
[2019-11-23] MEDS ORDERED: MVI, Adult with Vitamin K 10 ML, Folic Acid 1 MG, Thiamine 100 MG in Lactated Ringers 1... IV ONE ×4 (19:21)
== END 2019-11-23 20:40 | disposition home or self-care (01) ==
LOC: DL.ED 17:05
DX: K29.20 Alcoholic gastritis without bleeding (principal); F10.10 Alcohol abuse, uncomplicated; Y90.6 Blood alcohol level of 120-199 mg/100 ml; F41.9 Anxiety disorder, unspecified; F32.9 Major depressive disorder, single episode, unspecified; Z88.0 Allergy status to penicillin; Z79.899 Other long term (current) drug therapy; Z90.49 Acquired absence of other specified parts of digestive tract
CPT/HCPCS: 36415; 80053; 80305; 80307; 81001; 85025; 96361; 96365; 96375; 99284; J2060; J2405; J3411; J3490; J7030; J7120

== ENCOUNTER 2019-12-13 02:25 | Emergency (ER) | payer MEDICAID ==
[2019-12-13] MEDS ORDERED: Propofol 200 MG/20 ML SDV IV ONE (02:26)
--- NOTE | 2019-12-13 02:45 | EDM.PDOC ---
ED HPI GENERAL MEDICAL PROBLEM - General Chief Complaint: Upper Extremity Injury/Pain Stated Complaint: BROKEN RIGHT WRIST PER PT Time Seen by Provider: 12/13/19 02:45 Source of Information: Reports: Patient History Limitations: Reports: No Limitations - History of Present Illness INITIAL COMMENTS - FREE TEXT/NARRATIVE: c/o right wrist pain, fell down stairs, landing on wrist. No other injury. Did not hit head, no loss of consciousness Admits ETOH. 3 beer and 3 shots tonight. Hx of ETOH abuse, on ativan for anxiety and withdrawal symptoms. Right Wrist Pain Score (Numeric/FACES): 10 - Related Data Allergies Allergy/AdvReac Type Severity Reaction Status Date / Time Penicillins Allergy Swelling Verified 12/13/19 02:39 Home Meds: Home Meds LORazepam [Ativan] 1 mg PO Q6H PRN #4 tablet 11/06/19 [Rx] Pantoprazole [ProTONIX] 40 mg PO DAILY #14 tab.cr 11/06/19 [Rx] Past Medical History - Past Health History Medical/Surgical History: Denies Medical/Surgical History HEENT History: Reports: None Cardiovascular History: Reports: None Respiratory History: Reports: None Gastrointestinal History: Reports: None Genitourinary History: Reports: None Musculoskeletal History: Reports: Fracture, Other (See Below) Other Musculoskeletal History: Broke left collor bone Neurological History: Reports: Concussion, Seizure Other Neuro History: Alcoholic withdrawal Seizures Psychiatric History: Reports: Addiction, Anxiety, Depression, Psych Hospitalization(s), Suicide Attempt, Suicidal Ideation Endocrine/Metabolic History: Reports: None Hematologic History: Reports: None Immunologic History: Reports: None Oncologic (Cancer) History: Reports: None Dermatologic History: Reports: None - Past Surgical History GI Surgical History: Reports: Appendectomy Neurological Surgical History: Reports: None Musculoskeletal Surgical History: Reports: None Social & Family History - Family History Family Medical History: Noncontributory - Caffeine Use Caffeine Use: Reports: Soda - Living Situation & Occupation Living situation: Reports: Alone Occupation: Unemployed Review of Systems - Review of Systems Review Of Systems: Comprehensive ROS is negative, except as noted in HPI. ED EXAM, GENERAL - Physical Exam Exam: See Below Exam Limited By: No Limitations General Appearance: Alert, Anxious, Mild Distress Eye Exam: Bilateral Eye: EOMI Ears: Normal External Exam, Hearing Grossly Normal Nose: Normal Inspection Throat/Mouth: Normal Inspection Head: Atraumatic, Normocephalic Neck: Normal Inspection Respiratory/Chest: No Respiratory Distress, Lungs Clear Cardiovascular: Normal Peripheral Pulses, Regular Rate, Rhythm Back Exam: Full Range of Motion Extremities: Limited Range of Motion, Other (minor deformity proximal 4th and 5th metacarpals, swelling over ulna tenderness right wrist, fingers and distal foream.) Neurological: Alert, Oriented, Normal Cognition Psychiatric: Anxious (hyperventilating on arrival) Skin Exam: Warm, Dry, Wound/Incision (minor 2mm abrasion distal 3rd and 4th metacarpal) ED TRAUMA EXTREMITY PROCEDURES - Joint Reduction Right Other Sedation: Conscious Sedation Pre-Procedure NV Status: Normal Post-Procedure NV Status: Normal Technique: Traction/Counter Traction Number of Attempts: 1 Post-Reduction Imaging: Completely Reduced Joint Reduction Complications: Yes Progress/Comments: Metacarpal splint on post procedure - Splinting Left Upper Extremity Pre-Procedure NV Status: Normal Post-Procedure NV Status: Normal Splint Material: Aluminum-Foam Splint Design: Other (metacarpal) Applied & Form Fitted By: Provider Provider Post-Splint Application NV Check: NV Status Normal Complications: No Course - Vital Signs Last Recorded V/S: Last Vital Signs Temp 98.5 F 12/13/19 04:06 Pulse 103 H 12/13/19 04:06 Resp 16 12/13/19 04:06 BP 122/84 12/13/19 04:06 Pulse Ox 98 12/13/19 04:06 - Orders/Labs/Meds Meds: Medications Discontinued Medications Generic Name Dose Route Start Last Admin Trade Name Freq PRN Reason Stop Dose Admin Lorazepam 1 mg 12/13/19 04:08 12/13/19 04:12 Ativan PO 12/13/19 04:09 1 mg ONETIME ONE Administration Pantoprazole Sodium 40 mg 12/13/19 05:27 12/13/19 05:34 Protonix Iv IVPUSH 12/13/19 05:28 40 mg ONETIME ONE Administration - Re-Assessments/Exams Free Text/Narrative Re-Assessment/Exam: 12/13/19 05:41 post procedure CMS intact. Arouses readily from sedation. Dad waiting in parking lot for patient. Departure - Departure Time of Disposition: 05:34 Disposition: Home, Self-Care 01 Condition: Good Clinical Impression: Dislocation of metacarpal (bone), proximal end of right hand, initial encounter, Alcohol abuse, Fall (on) (from) other stairs and steps, initial encounter Lunate fracture, closed Qualifiers: Encounter type: initial encounter Fracture alignment: nondisplaced Laterality: right Qualified Code(s): S62.124A - Nondisplaced fracture of lunate [semilunar], right wrist, initial encounter for closed fracture - Discharge Information *PRESCRIPTION DRUG MONITORING PROGRAM REVIEWED*: No *COPY OF PRESCRIPTION DRUG MONITORING REPORT IN PATIENT MEIR: No Instructions: Closed Reduction for Metacarpal Dislocation Forms: ED Department Discharge Additional Instructions: wear metacarpal splint clinic follow up next week ice elevatio tylenol 650mg every 4 hours as needed for discomfort Sepsis Event Note (ED) - Evaluation Sepsis Screening Result: No Definite Risk
--- NOTE | 2019-12-13 03:02 | CR ---
PROCEDURE INFORMATION: Exam: XR Right Wrist Exam date and time: 12/13/2019 2:46 AM Age: 19 years old Clinical indication: Other: Fall/pain; Additional info: Fell down stairs, TECHNIQUE: Imaging protocol: XR Right wrist. Views: 3 or more views. COMPARISON: No relevant prior studies available. FINDINGS: Bones/joints: Possible dislocated 5th metacarpal bone. Soft tissues: Normal. IMPRESSION: 1. Possible dislocated 5th metacarpal bone lying posterior to the hamate. CT scan of the wrist is suggested to confirm this 2. No acute fracture.
[2019-12-13 04:06] VITALS: BP 122/84; PULSE 103
[2019-12-13] MEDS ORDERED: LORazepam 1 MG Tab PO ONE (04:08)
--- NOTE | 2019-12-13 04:17 | CT ---
PROCEDURE INFORMATION: Exam: CT Right Upper Extremity Without Contrast, Hand Exam date and time: 12/13/2019 4:01 AM Age: 19 years old Clinical indication: Other: Fall/pain; Additional info: Possible dislocation 5th metacarpal TECHNIQUE: Imaging protocol: CT of the Right upper extremity without contrast was performed. Exam focused on the hand. Radiation optimization: All CT scans at this facility use at least one of these dose optimization techniques: automated exposure control; mA and/or kV adjustment per patient size (includes targeted exams where dose is matched to clinical indication); or iterative reconstruction. COMPARISON: CR Wrist Comp Min 3V Rt 12/13/2019 2:46 AM FINDINGS: Bones/joints: Nondisplaced chip fracture of the superior posterior aspect of the lunate Dislocation of the 4th and 5th metacarpal bones posteriorly over the hamate. Soft tissues: Normal. IMPRESSION: 1. Nondisplaced chip fracture of the superior posterior aspect of the lunate 2. Dislocation of the 4th and 5th metacarpal bones posteriorly over the hamate. 3. Probable small chip fracture of the posterior aspect of the hamate
--- NOTE | 2019-12-13 05:12 | CR ---
PROCEDURE INFORMATION: Exam: XR Right Hand Exam date and time: 12/13/2019 4:57 AM Age: 19 years old Clinical indication: Other: Post red; Additional info: Post reduction TECHNIQUE: Imaging protocol: XR Right hand. Views: 1 or 2 views. COMPARISON: CT Hand wo Cont Rt, Hand wo Cont Rt 12/13/2019 4:01 AM FINDINGS: Bones/joints: Successful reduction of the previously noted dislocation the 4th and 5th metacarpal bones. Soft tissues: Normal. IMPRESSION: Successful reduction of the previously noted dislocation the 4th and 5th metacarpal bones with excellent alignment
[2019-12-13] MEDS ORDERED: Pantoprazole 40 MG Vial IVPUSH ONE (05:27)
== END 2019-12-13 05:51 | disposition home or self-care (01) ==
LOC: DL.ED 02:25
DX: S63.064A Dislocation of metacarpal (bone), proximal end of right hand, initial encounter (principal); F10.10 Alcohol abuse, uncomplicated; F41.9 Anxiety disorder, unspecified; F32.9 Major depressive disorder, single episode, unspecified; Z88.0 Allergy status to penicillin; Z79.899 Other long term (current) drug therapy; W10.9XXA Fall (on) (from) unspecified stairs and steps, initial encounter
CPT/HCPCS: 26670; 73110; 73130; 73200; 96374; 99284; A9270; C9113; J2704

== ENCOUNTER 2020-04-11 13:46 | Emergency (ER) | payer MEDICAID ==
[2020-04-11 13:49] VITALS: BP 125/86; PULSE 102
--- NOTE | 2020-04-11 13:53 | EDM.PDOC ---
ED HPI GENERAL MEDICAL PROBLEM - General Chief Complaint: Gastrointestinal Problem Stated Complaint: AMBULANCE Time Seen by Provider: 04/11/20 13:53 Source of Information: Reports: Patient, Old Records, RN, RN Notes Reviewed History Limitations: Reports: No Limitations - History of Present Illness INITIAL COMMENTS - FREE TEXT/NARRATIVE: Pt presents to ED via [facility] with c/o hematochezia and some blood in his vomit. Pt states that he first noticed streaks of the blood in his stool last night. States he has accompanying abdominal pain on the left side. Pt states that he drank 1L of vodka a day the last two days and last drink was yesterday evening. Admits to Hx of GI bleed and alcohol withdrawals. Pt rates pain to abdomen at a 7/10. He states he is beginning to have tremor and anxiety similar to past alcohol withdrawal symptoms. He does not wish to have detox or referral to EtOH treatment, stating that he can quit on his own. He denies coffee ground or frankly blood emesis or stools. Denies chest pain, rapid HR, shortness of breath, dizziness, lightheadedness, or hallucinations. Onset: Gradual Onset Date: 04/10/20 Duration: Constant Location: Reports: Abdomen Quality: Reports: Ache Severity: Moderate Improves with: Reports: None Worsens with: Reports: None Associated Symptoms: Reports: No Other Symptoms Abdomen Pain Score (Numeric/FACES): 7 - Related Data Allergies Allergy/AdvReac Type Severity Reaction Status Date / Time Penicillins Allergy Swelling Verified 04/11/20 13:46 Past Medical History - Past Health History Medical/Surgical History: Denies Medical/Surgical History HEENT History: Reports: None Cardiovascular History: Reports: None Respiratory History: Reports: None Gastrointestinal History: Reports: None Genitourinary History: Reports: None Musculoskeletal History: Reports: Fracture, Other (See Below) Other Musculoskeletal History: Broke left collor bone Neurological History: Reports: Concussion, Seizure Other Neuro History: Alcoholic withdrawal Seizures Psychiatric History: Reports: Addiction, Anxiety, Depression, Psych Hospitalization(s), Suicide Attempt, Suicidal Ideation Endocrine/Metabolic History: Reports: None Hematologic History: Reports: None Immunologic History: Reports: None Oncologic (Cancer) History: Reports: None Dermatologic History: Reports: None - Past Surgical History GI Surgical History: Reports: Appendectomy Neurological Surgical History: Reports: None Musculoskeletal Surgical History: Reports: None Social & Family History - Family History Family Medical History: Noncontributory - Caffeine Use Caffeine Use: Reports: Soda - Living Situation & Occupation Living situation: Reports: Alone Occupation: Unemployed ED ROS GENERAL - Review of Systems Review Of Systems: Comprehensive ROS is negative, except as noted in HPI. ED EXAM, GI/ABD - Physical Exam Exam: See Below Exam Limited By: No Limitations General Appearance: Alert, WD/WN, No Apparent Distress, Anxious. No: Active Emesis Eyes: Bilateral: Normal Appearance (No scleral icterus), EOMI Ears: Normal External Exam, Normal Canal, Hearing Grossly Normal, Normal TMs Nose: Normal Inspection, Normal Mucosa, No Blood Throat/Mouth: Normal Inspection, Normal Lips, Normal Teeth, Normal Gums, Normal Oropharynx, Normal Voice, No Airway Compromise Head: Atraumatic, Normocephalic Neck: Normal Inspection, Supple, Non-Tender, Full Range of Motion Respiratory/Chest: No Respiratory Distress, Lungs Clear, Normal Breath Sounds, No Accessory Muscle Use, Chest Non-Tender Cardiovascular: Regular Rate, Rhythm, No Edema, Tachycardia GI/Abdominal Exam: Normal Bowel Sounds, Soft, No Organomegaly, No Distention, No Abnormal Bruit, No Mass, Pelvis Stable, Tender (LUQ). No: Guarding, Rigid (Male) Exam: Deferred Rectal (Males) Exam: Heme - Stool Back Exam: Normal Inspection, Full Range of Motion. No: CVA Tenderness (L), CVA Tenderness (R) Extremities: Normal Inspection, Normal Range of Motion, Non-Tender, Normal Capillary Refill, No Pedal Edema Neurological: Alert, Oriented, CN II-XII Intact, Normal Cognition, Normal Gait, Normal Reflexes, No Motor/Sensory Deficits Psychiatric: Anxious Skin Exam: Warm, Dry, Intact, Normal Color, No Rash Course - Vital Signs Last Recorded V/S: Last Vital Signs Temp 98.9 F 04/11/20 13:49 Pulse 102 H 04/11/20 13:49 Resp 16 04/11/20 13:49 BP 125/86 04/11/20 13:49 Pulse Ox 95 04/11/20 13:49 - Orders/Labs/Meds Orders: Active Orders 24 hr Category Date Time Status EKG 12 Lead [EKG Documentation Completion] [RC] STAT Care 04/11/20 13:53 Active Peripheral IV Care [RC] . DIRECTED Care 04/11/20 13:54 Active Octreotide [SandoSTATIN] 500 mcg Med 04/11/20 14:00 Active Sodium Chloride 0.9% [Normal Saline] 250 ml IV ASDIRECTED Pantoprazole [ProTONIX IV] 40 mg Med 04/11/20 13:56 Active Sodium Chloride 0.9% [Normal Saline] 100 ml IV .CONTINUOS Sodium Chloride 0.9% [Saline Flush] Med 04/11/20 13:54 Active 10 ml FLUSH ASDIRECTED PRN Peripheral IV Insertion Adult [OM.PC] Stat Oth 04/11/20 13:54 Ordered Medication Orders Pantoprazole Sodium 40 mg/ (Sodium Chloride) 100 mls @ 20 mls/hr IV .CONTINUOS YOSHI Last Admin: 04/11/20 14:55 Dose: 20 mls/hr Documented by: STU Octreotide Acetate 500 mcg/ (Sodium Chloride) 255 mls @ 12.5 mls/hr IV ASDIRECTED YOSHI Last Admin: 04/11/20 15:07 Dose: 12.5 mls/hr Documented by: STU Sodium Chloride (Saline Flush) 10 ml FLUSH ASDIRECTED PRN PRN Reason: Keep Vein Open Last Admin: 04/11/20 14:52 Dose: 10 ml Documented by: STU Labs: Laboratory Tests 04/11/20 04/11/20 04/11/20 Range/Units 14:03 14:03 14:03 WBC 5.0 (5.0-10.0) 10^3/uL RBC 5.11 (4.6-6.2) 10^6/uL Hgb 16.7 (14.0-18.0) g/dL Hct 46.4 (40.0-54.0) % MCV 90.8 (80-100) fL MCH 32.7 (27.0-34.0) pg MCHC 36.0 H (33.0-35.0) g/dL Plt Count 283 (150-450) 10^3/uL Neut % (Auto) 63.1 (42.2-75.2) % Lymph % (Auto) 28.2 (20.5-50.1) % [place] % (Auto) 7.1 (2-8) % Eos % (Auto) 0.8 L (1.0-3.0) % Baso % (Auto) 0.8 (0.0-1.0) % PT 10.6 (9.0-12.0) SEC INR 1.1 (0.9-1.2) APTT 26.1 (22.0-34.0) SEC Sodium 139 (136-145) mmol/L Potassium 3.6 (3.5-5.1) mmol/L Chloride 101 (98-107) mmol/L Carbon Dioxide 26 (21-32) mmol/L Anion Gap 15.6 H (7-13) mEq/L BUN 10 (7-18) mg/dL Creatinine 1.10 (0.70-1.30) mg/dL Est Cr Clr Drug Dosing 106.23 mL/min Estimated GFR (MDRD) > 60 BUN/Creatinine Ratio 9.1 (No establ ref range) Glucose 110 H (74-99) mg/dL Calcium 8.8 (8.5-10.1) mg/dL Total Bilirubin 0.5 (0.2-1.0) mg/dL AST 67 H (15-37) U/L ALT 77 H (16-63) U/L Alkaline Phosphatase 115 (46-116) U/L Troponin I < 0.017 (0.000-0.056) ng/mL Total Protein 7.3 (6.4-8.2) g/dL Albumin 4.0 (3.4-5.0) g/dL Globulin 3.3 Albumin/Globulin Ratio 1.2 Amylase 39 (25-115) U/L Lipase 74 (73-393) U/L Urine Color (YELLOW) Urine Appearance (CLEAR) Urine pH (5.0-9.0) Ur Specific [place] (1.005-1.030) Urine Protein (NEGATIVE) Urine Glucose (UA) (NEGATIVE) Urine Ketones (NEGATIVE) Urine Occult Blood (NEGATIVE) Urine Nitrite (NEGATIVE) Urine Bilirubin (NEGATIVE) Urine Urobilinogen (0.2-1.0) mg/dL Ur Leukocyte Esterase (NEGATIVE) Urine Opiates Screen (NEGATIVE) Ur Oxycodone Screen (NEGATIVE) Urine Methadone Screen (NEGATIVE) Ur Barbiturates Screen (NEGATIVE) U Tricyclic Antidepress (NEGATIVE) Ur Phencyclidine Scrn (NEGATIVE) Ur Amphetamine Screen (NEGATIVE) U Methamphetamines Scrn (NEGATIVE) Urine MDMA Screen (NEGATIVE) U Benzodiazepines Scrn (NEGATIVE) Urine Cocaine Screen (NEGATIVE) U Marijuana (THC) Screen (NEGATIVE) Ethyl Alcohol 83 (0) mg/dL 04/11/20 04/11/20 Range/Units 15:25 15:25 WBC (5.0-10.0) 10^3/uL RBC (4.6-6.2) 10^6/uL Hgb (14.0-18.0) g/dL Hct (40.0-54.0) % MCV (80-100) fL MCH (27.0-34.0) pg MCHC (33.0-35.0) g/dL Plt Count (150-450) 10^3/uL Neut % (Auto) (42.2-75.2) % Lymph % (Auto) (20.5-50.1) % [place] % (Auto) (2-8) % Eos % (Auto) (1.0-3.0) % Baso % (Auto) (0.0-1.0) % PT (9.0-12.0) SEC INR (0.9-1.2) APTT (22.0-34.0) SEC Sodium (136-145) mmol/L Potassium (3.5-5.1) mmol/L Chloride (98-107) mmol/L Carbon Dioxide (21-32) mmol/L Anion Gap (7-13) mEq/L BUN (7-18) mg/dL Creatinine (0.70-1.30) mg/dL Est Cr Clr Drug Dosing mL/min Estimated GFR (MDRD) BUN/Creatinine Ratio (No establ ref range) Glucose (74-99) mg/dL Calcium (8.5-10.1) mg/dL Total Bilirubin (0.2-1.0) mg/dL AST (15-37) U/L ALT (16-63) U/L Alkaline Phosphatase (46-116) U/L Troponin I (0.000-0.056) ng/mL Total Protein (6.4-8.2) g/dL Albumin (3.4-5.0) g/dL Globulin Albumin/Globulin Ratio Amylase (25-115) U/L Lipase (73-393) U/L Urine Color Yellow (YELLOW) Urine Appearance Clear (CLEAR) Urine pH 5.5 (5.0-9.0) Ur Specific [place] >= 1.030 (1.005-1.030) Urine Protein Negative (NEGATIVE) Urine Glucose (UA) Negative (NEGATIVE) Urine Ketones Negative (NEGATIVE) Urine Occult Blood Negative (NEGATIVE) Urine Nitrite Negative (NEGATIVE) Urine Bilirubin Negative (NEGATIVE) Urine Urobilinogen 0.2 (0.2-1.0) mg/dL Ur Leukocyte Esterase Negative (NEGATIVE) Urine Opiates Screen Negative (NEGATIVE) Ur Oxycodone Screen Negative (NEGATIVE) Urine Methadone Screen Negative (NEGATIVE) Ur Barbiturates Screen Negative (NEGATIVE) U Tricyclic Antidepress Negative (NEGATIVE) Ur Phencyclidine Scrn Negative (NEGATIVE) Ur Amphetamine Screen Negative (NEGATIVE) U Methamphetamines Scrn Negative (NEGATIVE) Urine MDMA Screen Negative (NEGATIVE) U Benzodiazepines Scrn Negative (NEGATIVE) Urine Cocaine Screen Negative (NEGATIVE) U Marijuana (THC) Screen Negative (NEGATIVE) Ethyl Alcohol (0) mg/dL Meds: Medications Generic Name Dose Route Start Last Admin Trade Name Freq PRN Reason Stop Dose Admin Pantoprazole Sodium 40 mg/ 100 mls @ 20 mls/hr 04/11/20 13:56 04/11/20 14:55 Sodium Chloride IV 20 mls/hr .CONTINUOS YOSHI Administration Octreotide Acetate 500 mcg/ 255 mls @ 12.5 mls/hr 04/11/20 14:00 04/11/20 15:07 Sodium Chloride IV 12.5 mls/hr ASDIRECTED YOSHI Administration Sodium Chloride 10 ml 04/11/20 13:54 04/11/20 14:52 Saline Flush FLUSH 10 ml ASDIRECTED PRN Administration Keep Vein Open Discontinued Medications Generic Name Dose Route Start Last Admin Trade Name Freq PRN Reason Stop Dose Admin Multivitamins/Minerals 10 ml/ 1,011.2 mls @ 999 mls/hr 04/11/20 13:54 04/11/20 14:55 Thiamine HCl 100 mg/ Folic IV 04/11/20 14:54 999 mls/hr Acid 1 mg/ Lactated Ringer's .BOLUS ONE Administration Lorazepam 2 mg 04/11/20 14:00 04/11/20 14:52 Ativan IVPUSH 04/11/20 14:01 2 mg ONETIME ONE Administration Octreotide Acetate 50 mcg 04/11/20 13:55 04/11/20 14:49 Sandostatin IVPUSH 04/11/20 13:56 50 mcg ONETIME ONE Administration Ondansetron HCl 4 mg 04/11/20 13:54 04/11/20 14:52 Zofran IV 04/11/20 13:55 4 mg ONETIME ONE Administration Pantoprazole Sodium 80 mg 04/11/20 13:55 04/11/20 14:50 Protonix Iv IVPUSH 04/11/20 13:56 80 mg .BOLUS ONE Administration - Re-Assessments/Exams Free Text/Narrative Re-Assessment/Exam: 04/11/20 16:59 No emesis while in the ER. Brown normal looking hemoccult NEGATIVE stool. I see no signs or indication of GI bleeding in the pt, but he does appear to be having alcohol withdrawal. He may have some mild alcohol gastritis. Plan to d/c pt home as he declines detox or treatment referral. Departure - Departure Time of Disposition: 17:00 Disposition: Home, Self-Care 01 Condition: Good Clinical Impression: Alcohol withdrawal Qualifiers: Complication of substance-induced condition: uncomplicated Qualified Code(s): F10.230 - Alcohol dependence with withdrawal, uncomplicated Alcoholic gastritis Qualifiers: Chronicity: acute Gastritis bleeding: without bleeding Qualified Code(s): K29.20 - Alcoholic gastritis without bleeding - Discharge Information *PRESCRIPTION DRUG MONITORING PROGRAM REVIEWED*: Not Applicable *COPY OF PRESCRIPTION DRUG MONITORING REPORT IN PATIENT MEIR: Not Applicable Instructions: Alcohol Withdrawal Syndrome, [id number], Gastritis, Adult, [id number], Finding Treatment for Addiction Forms: ED Department Discharge Additional Instructions: Rx: Lorazepam 1mg *Do not drive or drink alcohol while taking this medication. Rx: Protonix 40mg Rx: Carafate 1g Abstain from alcohol consumption. Go to a detox or alcohol treatment program if you are unable to quit on your own. Sepsis Event Note (ED) - Evaluation Sepsis Screening Result: No Definite Risk - Focused Exam Vital Signs: Vital Signs Temp Pulse Resp BP Pulse Ox 04/11/20 13:49 98.9 F 102 H 16 125/86 95 - My Orders Last 24 Hours: My Active Orders 04/11/20 13:53 EKG 12 Lead [EKG Documentation Completion] [RC] STAT 04/11/20 13:54 Peripheral IV Care [RC] . DIRECTED Sodium Chloride 0.9% [Saline Flush] 10 ml FLUSH ASDIRECTED PRN Peripheral IV Insertion Adult [OM.PC] Stat 04/11/20 13:56 Pantoprazole [ProTONIX IV] 40 mg Sodium Chloride 0.9% [Normal Saline] 100 ml IV .CONTINUOS 04/11/20 14:00 Octreotide [SandoSTATIN] 500 mcg Sodium Chloride 0.9% [Normal Saline] 250 ml IV ASDIRECTED - Assessment/Plan Last 24 Hours: My Active Orders 04/11/20 13:53 EKG 12 Lead [EKG Documentation Completion] [RC] STAT 04/11/20 13:54 Peripheral IV Care [RC] . DIRECTED Sodium Chloride 0.9% [Saline Flush] 10 ml FLUSH ASDIRECTED PRN Peripheral IV Insertion Adult [OM.PC] Stat 04/11/20 13:56 Pantoprazole [ProTONIX IV] 40 mg Sodium Chloride 0.9% [Normal Saline] 100 ml IV .CONTINUOS 04/11/20 14:00 Octreotide [SandoSTATIN] 500 mcg Sodium Chloride 0.9% [Normal Saline] 250 ml IV ASDIRECTED
[2020-04-11] MEDS ORDERED: Ondansetron 4 MG/2 ML SDV IV ONE (13:54)
[2020-04-11] MEDS ORDERED: Sodium Chloride 0.9% 10 ML Syringe FLUSH PRN (13:54)
[2020-04-11] MEDS ORDERED: MVI, Adult with Vitamin K 10 ML, Thiamine 100 MG, Folic Acid 1 MG in Lactated Ringers 1... IV ONE ×4 (13:54)
[2020-04-11] MEDS ORDERED: Octreotide 100 MCG/ML SDV IVPUSH ONE (13:55)
[2020-04-11] MEDS ORDERED: Pantoprazole 40 MG Vial IVPUSH ONE (13:55)
[2020-04-11] MEDS ORDERED: Pantoprazole 40 MG in Sodium Chloride 0.9% 100 ML IV SCH (13:56)
[2020-04-11] MEDS ORDERED: Octreotide 500 MCG in Sodium Chloride 0.9% 250 ML IV SCH (14:00)
[2020-04-11] MEDS ORDERED: LORazepam 2 MG/ML SDV IVPUSH ONE (14:00)
[2020-04-11 14:47] LABS: PTT,PARTIAL THROMBOPLSTIN TIME 26.1 SEC (22.0-34.0)
[2020-04-11 14:51] LABS: ANION GAP 15.6 mEq/L (7-13); CHLORIDE,CL 101 mmol/L (98-107); SODIUM,NA 139 mmol/L (136-145)
[2020-04-11] MEDS ORDERED: LORazepam 1 MG Tab PO ONE (17:07)
== END 2020-04-11 17:26 | disposition home or self-care (01) ==
LOC: DL.ED 13:46
DX: K29.20 Alcoholic gastritis without bleeding (principal); F10.230 Alcohol dependence with withdrawal, uncomplicated; R00.0 Tachycardia, unspecified; Y90.4 Blood alcohol level of 80-99 mg/100 ml; Z88.0 Allergy status to penicillin
CPT/HCPCS: 36415; 80053; 80305; 80307; 81003; 82150; 82272; 83690; 84484; 85025; 85610; 85730; 93005; 96365; 96366; 96368; 96375; 99285; A9270; C9113; J2060; J2354; J2405; J3411; J7050; J7120; J3490

== ENCOUNTER 2020-05-06 16:52 | Emergency (ER) | payer MEDICAID ==
[2020-05-06 17:16] VITALS: BP 133/93; PULSE 114
[2020-05-06] MEDS ORDERED: MVI, Adult with Vitamin K 10 ML, Thiamine 100 MG, Folic Acid 1 MG in Lactated Ringers 1... IV ONE ×4 (17:39)
--- NOTE | 2020-05-06 17:52 | EDM.PDOCBH ---
<Elvin Preez - Last Filed: 05/06/20 19:55> ED HPI GENERAL MEDICAL PROBLEM - General Chief Complaint: Drug or Alcohol Abuse Stated Complaint: SEIZURE Time Seen by Provider: 05/06/20 17:25 - Related Data Allergies Allergy/AdvReac Type Severity Reaction Status Date / Time Penicillins Allergy Swelling Verified 05/06/20 17:05 Home Meds: Home Meds . [No Known Home Meds] 05/06/20 [History] COURSE, BEHAVIORAL HEALTH COMP - Course Re-Assessment/Re-Exam: re-exam; pt sleeping arousable, no c/o results discussed with pt who wants to go home now. Departure - Departure Time of Disposition: 19:56 Disposition: Home, Self-Care 01 Condition: Good Clinical Impression: Alcohol abuse - Discharge Information Forms: ED Department Discharge Additional Instructions: 1) avoid alcohol 2) follow up at clinic <Tawanna Vo - Last Filed: 05/07/20 07:32> ED HPI GENERAL MEDICAL PROBLEM - General Source of Information: Reports: Patient, RN, RN Notes Reviewed History Limitations: Reports: No Limitations - History of Present Illness INITIAL COMMENTS - FREE TEXT/NARRATIVE: Patient presents to the ED via personal vehicle with complaints of pre-syncope. The patient states he feels as though he had a seizure at home roughly 20 minutes prior to arrival at the ED. He states this episode was unwitnessed; he was in the bathroom and felt dizzy upon standing up from the toilet and woke up on the floor. He states he did not hit his head. The patient does attest to a history of seizures with alcohol detox. The patient states he has been drinking heavily for the past four days, roughly one liter of alcohol each day. He reports his last drink was last night 05/05/20 at about 10 pm. Additionally, he reports headache, chest tightness, shortness of breath, nausea, vomiting, dyspepsia, and diffuse abdominal pain. He denies cough, sore throat, palpitations, hematemesis, diarrhea, melena, or hematochezia. The patient states he feels his chest pain and shortness of breath are related to anxiety, as he feels quite anxious right now. He attests to smoking one pack of cigarettes per day. He denies recreational drug use. Past Medical History - Past Health History Medical/Surgical History: Denies Medical/Surgical History HEENT History: Reports: None Cardiovascular History: Reports: None Respiratory History: Reports: None Gastrointestinal History: Reports: None, Gastritis Genitourinary History: Reports: None Musculoskeletal History: Reports: Fracture, Other (See Below) Other Musculoskeletal History: Broke left collor bone Neurological History: Reports: Concussion, Seizure Other Neuro History: Alcoholic withdrawal Seizures Psychiatric History: Reports: Addiction, Anxiety, Depression, Psych Hospitalization(s), Suicide Attempt, Suicidal Ideation Endocrine/Metabolic History: Reports: None Hematologic History: Reports: None Immunologic History: Reports: None Oncologic (Cancer) History: Reports: None Dermatologic History: Reports: None - Past Surgical History GI Surgical History: Reports: Appendectomy Neurological Surgical History: Reports: None Musculoskeletal Surgical History: Reports: None Social & Family History - Family History Family Medical History: No Pertinent Family History - Tobacco Use Tobacco Use Status *Q: Current Every Day Tobacco User Years of Tobacco use: 10 Packs/Tins Daily: 1 - Caffeine Use Caffeine Use: Reports: Soda - Recreational Drug Use Recreational Drug Use: No - Living Situation & Occupation Living situation: Reports: Alone Occupation: Unemployed ED ROS GENERAL - Review of Systems Review Of Systems: Comprehensive ROS is negative, except as noted in HPI. ED EXAM, BEHAVIORAL HEALTH - Physical Exam Exam: See Below Exam Limited By: No Limitations General Appearance: Alert, Anxious Eye Exam: Bilateral Eye: EOMI, Normal Inspection, PERRL Throat/Mouth: Normal Voice, No Airway Compromise, Other (Dry mucous membranes) Head: Atraumatic, Normocephalic Neck: Normal Inspection, Supple, Non-Tender, Full Range of Motion. No: Lymphadenopathy (L), Lymphadenopathy (R) Respiratory/Chest: No Respiratory Distress, Lungs Clear, Normal Breath Sounds, No Accessory Muscle Use, Chest Non-Tender Cardiovascular: Normal Peripheral Pulses, No Edema, No Gallop, No JVD, No Murmur, No Rub, Tachycardia GI/Abdominal: Normal Bowel Sounds, Soft, Non-Tender, No Distention, No Mass, Pelvis Stable Back Exam: Normal Inspection, Full Range of Motion. No: CVA Tenderness (L), CVA Tenderness (R) Extremities: Normal Inspection, Normal Range of Motion, Non-Tender, No Pedal Edema, Normal Capillary Refill Neurological: Alert, Oriented x 3 Psychiatric: Oriented, Poor Eye Contact, Other (Anxious) Skin Exam: Warm, Dry, Intact, Normal color, No rash. No: Ecchymosis, Erythema, Excoriations, Mottled, Petechiae #1 Interpretation EKG Date: 05/06/20 Time: 17:46 Rhythm: Other (Sinus Tach) [place]: Normal P-Wave: Present QRS: Normal ST-T: Normal QT: Normal Comparison: No Change (ST; No evidence of acute ischemia) COURSE, BEHAVIORAL HEALTH COMP - Course Vital Signs: Last Vital Signs Temp 99.7 F 05/06/20 16:58 Pulse 114 H 05/06/20 16:58 Resp 16 05/06/20 16:58 BP 133/93 H 05/06/20 16:58 Pulse Ox 96 05/06/20 16:58 Orders, Labs, Meds: Laboratory Tests 05/06/20 05/06/20 05/06/20 Range/Units 17:52 17:52 17:52 WBC 5.6 (5.0-10.0) 10^3/uL RBC 4.80 (4.6-6.2) 10^6/uL Hgb 15.8 (14.0-18.0) g/dL Hct 44.0 (40.0-54.0) % MCV 91.7 (80-100) fL MCH 32.9 (27.0-34.0) pg MCHC 35.9 H (33.0-35.0) g/dL Plt Count 275 (150-450) 10^3/uL Neut % (Auto) 55.8 (42.2-75.2) % Lymph % (Auto) 37.0 (20.5-50.1) % [place] % (Auto) 5.4 (2-8) % Eos % (Auto) 1.1 (1.0-3.0) % Baso % (Auto) 0.7 (0.0-1.0) % Sodium 140 (136-145) mmol/L Potassium 3.9 (3.5-5.1) mmol/L Chloride 103 (98-107) mmol/L Carbon Dioxide 23 (21-32) mmol/L Anion Gap 17.9 H (7-13) mEq/L BUN 13 (7-18) mg/dL Creatinine 1.14 (0.70-1.30) mg/dL Est Cr Clr Drug Dosing 98.33 mL/min Estimated GFR (MDRD) > 60 BUN/Creatinine Ratio 11.4 (No establ ref range) Glucose 100 H (74-99) mg/dL Lactic Acid 1.3 (0.4-2.0) mmol/L Calcium 9.0 (8.5-10.1) mg/dL Phosphorus 4.0 (2.6-4.7) mg/dL Magnesium 2.2 (1.8-2.4) mg/dL Total Bilirubin 0.7 (0.2-1.0) mg/dL AST 31 (15-37) U/L ALT 63 (16-63) U/L Alkaline Phosphatase 94 (46-116) U/L Troponin I < 0.017 (0.000-0.056) ng/mL Total Protein 7.0 (6.4-8.2) g/dL Albumin 3.9 (3.4-5.0) g/dL Globulin 3.1 Albumin/Globulin Ratio 1.3 Urine Color (YELLOW) Urine Appearance (CLEAR) Urine pH (5.0-9.0) Ur Specific [place] (1.005-1.030) Urine Protein (NEGATIVE) Urine Glucose (UA) (NEGATIVE) Urine Ketones (NEGATIVE) Urine Occult Blood (NEGATIVE) Urine Nitrite (NEGATIVE) Urine Bilirubin (NEGATIVE) Urine Urobilinogen (0.2-1.0) mg/dL Ur Leukocyte Esterase (NEGATIVE) Urine Opiates Screen (NEGATIVE) Ur Oxycodone Screen (NEGATIVE) Urine Methadone Screen (NEGATIVE) Ur Barbiturates Screen (NEGATIVE) U Tricyclic Antidepress (NEGATIVE) Ur Phencyclidine Scrn (NEGATIVE) Ur Amphetamine Screen (NEGATIVE) U Methamphetamines Scrn (NEGATIVE) Urine MDMA Screen (NEGATIVE) U Benzodiazepines Scrn (NEGATIVE) Urine Cocaine Screen (NEGATIVE) U Marijuana (THC) Screen (NEGATIVE) Ethyl Alcohol 161 (0) mg/dL 05/06/20 05/06/20 Range/Units 18:12 18:12 WBC (5.0-10.0) 10^3/uL RBC (4.6-6.2) 10^6/uL Hgb (14.0-18.0) g/dL Hct (40.0-54.0) % MCV (80-100) fL MCH (27.0-34.0) pg MCHC (33.0-35.0) g/dL Plt Count (150-450) 10^3/uL Neut % (Auto) (42.2-75.2) % Lymph % (Auto) (20.5-50.1) % [place] % (Auto) (2-8) % Eos % (Auto) (1.0-3.0) % Baso % (Auto) (0.0-1.0) % Sodium (136-145) mmol/L Potassium (3.5-5.1) mmol/L Chloride (98-107) mmol/L Carbon Dioxide (21-32) mmol/L Anion Gap (7-13) mEq/L BUN (7-18) mg/dL Creatinine (0.70-1.30) mg/dL Est Cr Clr Drug Dosing mL/min Estimated GFR (MDRD) BUN/Creatinine Ratio (No establ ref range) Glucose (74-99) mg/dL Lactic Acid (0.4-2.0) mmol/L Calcium (8.5-10.1) mg/dL Phosphorus (2.6-4.7) mg/dL Magnesium (1.8-2.4) mg/dL Total Bilirubin (0.2-1.0) mg/dL AST (15-37) U/L ALT (16-63) U/L Alkaline Phosphatase (46-116) U/L Troponin I (0.000-0.056) ng/mL Total Protein (6.4-8.2) g/dL Albumin (3.4-5.0) g/dL Globulin Albumin/Globulin Ratio Urine Color Yellow (YELLOW) Urine Appearance Slightly cloudy (CLEAR) Urine pH 6.5 (5.0-9.0) Ur Specific [place] >= 1.030 (1.005-1.030) Urine Protein Negative (NEGATIVE) Urine Glucose (UA) Negative (NEGATIVE) Urine Ketones Negative (NEGATIVE) Urine Occult Blood Negative (NEGATIVE) Urine Nitrite Negative (NEGATIVE) Urine Bilirubin Negative (NEGATIVE) Urine Urobilinogen 1.0 (0.2-1.0) mg/dL Ur Leukocyte Esterase Negative (NEGATIVE) Urine Opiates Screen Negative (NEGATIVE) Ur Oxycodone Screen Negative (NEGATIVE) Urine Methadone Screen Negative (NEGATIVE) Ur Barbiturates Screen Negative (NEGATIVE) U Tricyclic Antidepress Negative (NEGATIVE) Ur Phencyclidine Scrn Negative (NEGATIVE) Ur Amphetamine Screen Negative (NEGATIVE) U Methamphetamines Scrn Negative (NEGATIVE) Urine MDMA Screen Negative (NEGATIVE) U Benzodiazepines Scrn Negative (NEGATIVE) Urine Cocaine Screen Negative (NEGATIVE) U Marijuana (THC) Screen Negative (NEGATIVE) Ethyl Alcohol (0) mg/dL Medications Discontinued Medications Generic Name Dose Route Start Last Admin Trade Name Freq PRN Reason Stop Dose Admin Multivitamins/Minerals 10 ml/ 1,011.2 mls @ 999 mls/hr 05/06/20 17:39 05/06/20 18:02 Thiamine HCl 100 mg/ Folic IV 05/06/20 18:39 999 mls/hr Acid 1 mg/ Lactated Ringer's .BOLUS ONE Administration Lorazepam 0.5 mg 05/06/20 18:09 05/06/20 18:15 Ativan PO 05/06/20 18:10 0.5 mg ONETIME ONE Administration Ondansetron HCl 4 mg 05/06/20 19:04 05/06/20 19:12 Zofran IVPUSH 05/06/20 19:05 4 mg ONETIME ONE Administration Sepsis Event Note (ED) - Evaluation Sepsis Screening Result: No Definite Risk
[2020-05-06] MEDS ORDERED: LORazepam 0.5 MG Tab PO ONE (18:09)
[2020-05-06 18:59] LABS: ANION GAP 17.9 mEq/L (7-13); CHLORIDE,CL 103 mmol/L (98-107); SODIUM,NA 140 mmol/L (136-145)
[2020-05-06] MEDS ORDERED: Ondansetron 4 MG/2 ML SDV IVPUSH ONE (19:04)
== END 2020-05-06 20:01 | disposition home or self-care (01) ==
LOC: DL.ED 16:52
DX: F10.10 Alcohol abuse, uncomplicated (principal); Y90.6 Blood alcohol level of 120-199 mg/100 ml; F17.210 Nicotine dependence, cigarettes, uncomplicated; Z88.0 Allergy status to penicillin
CPT/HCPCS: 36415; 80053; 80305-QW; 80307; 81003; 83605; 83735; 84100; 84484; 85025; 93005; 96365; 96375; 99284-25; A9270-GY; J2405; J3411; J3490; J7120

== ENCOUNTER 2020-06-03 09:22 | Emergency (ER) | payer MEDICAID ==
[2020-06-03 09:35] VITALS: BP 121/80; PULSE 80
[2020-06-03 10:15] LABS: CHLORIDE,CL 103 mmol/L (98-107); SODIUM,NA 140 mmol/L (136-145)
--- NOTE | 2020-06-03 12:14 | EDM.PDOC ---
ED HPI GENERAL MEDICAL PROBLEM - General Chief Complaint: Drug or Alcohol Abuse Stated Complaint: HAD SEIZURE EARLIER. Time Seen by Provider: 06/03/20 09:47 Source of Information: Reports: Patient, RN History Limitations: Reports: No Limitations - History of Present Illness INITIAL COMMENTS - FREE TEXT/NARRATIVE: 20-year-old male who presents to the ER with complaints of having a seizure. Patient reports he has been drinking for the last 5 days and had a drink prior to his ER visit this morning. He states his girlfriend reported that he had a seizure for about 5 seconds. Patient states he doesn't remember having a seizure. He reports he suffered a seizure once when withdrawing from alcohol but was never diagnosed with seizures. He states the first seizure was at home. He has been drinking a half a gallon of vodka continuously for the last 5 days. He states he is here to be "checkout". - Related Data Allergies Allergy/AdvReac Type Severity Reaction Status Date / Time Penicillins Allergy Swelling Verified 05/06/20 17:05 Home Meds: Home Meds . [No Known Home Meds] 05/06/20 [History] Past Medical History - Past Health History Medical/Surgical History: Denies Medical/Surgical History HEENT History: Reports: None Cardiovascular History: Reports: None Respiratory History: Reports: None Gastrointestinal History: Reports: None, Gastritis Genitourinary History: Reports: None Musculoskeletal History: Reports: Fracture, Other (See Below) Other Musculoskeletal History: Broke left collor bone Neurological History: Reports: Concussion, Seizure Other Neuro History: Alcoholic withdrawal Seizures Psychiatric History: Reports: Addiction, Anxiety, Depression, Psych Hospitalization(s), Suicide Attempt, Suicidal Ideation Endocrine/Metabolic History: Reports: None Hematologic History: Reports: None Immunologic History: Reports: None Oncologic (Cancer) History: Reports: None Dermatologic History: Reports: None - Past Surgical History GI Surgical History: Reports: Appendectomy Neurological Surgical History: Reports: None Musculoskeletal Surgical History: Reports: None Social & Family History - Family History Family Medical History: No Pertinent Family History - Tobacco Use Tobacco Use Status *Q: Never Tobacco User - Caffeine Use Caffeine Use: Reports: None - Alcohol Use Days Per Week of Alcohol Use: 5 Number of Drinks Per Day: 12 Total Drinks Per Week: 60 - Recreational Drug Use Recreational Drug Use: No - Living Situation & Occupation Living situation: Reports: Alone Occupation: Unemployed ED ROS GENERAL - Review of Systems Review Of Systems: See Below Constitutional: Reports: No Symptoms HEENT: Reports: No Symptoms Respiratory: Reports: No Symptoms Cardiovascular: Reports: No Symptoms Endocrine: Reports: No Symptoms GI/Abdominal: Reports: No Symptoms : Reports: No Symptoms Musculoskeletal: Reports: No Symptoms Skin: Reports: No Symptoms Neurological: Reports: Seizure Psychiatric: Reports: No Symptoms Hematologic/Lymphatic: Reports: No Symptoms Immunologic: Reports: No Symptoms - Physical Exam Exam: See Below Exam Limited By: No Limitations General Appearance: Alert, WD/WN, No Apparent Distress Eye Exam: Bilateral Eye: EOMI, Normal Inspection, PERRL Ears: Normal External Exam, Normal Canal, Hearing Grossly Normal, Normal TMs Nose: Normal Inspection, Normal Mucosa, No Blood Throat/Mouth: Normal Inspection, Normal Lips, Normal Gums, Normal Oropharynx, Normal Voice, No Airway Compromise Head Exam: Atraumatic, Normocephalic Neck: Normal Inspection, Supple, Non-Tender, Full Range of Motion Respiratory/Chest: No Respiratory Distress, Lungs Clear, Normal Breath Sounds, No Accessory Muscle Use, Chest Non-Tender Cardiovascular: Normal Peripheral Pulses, Regular Rate, Rhythm, No Edema, No Gallop, No JVD, No Murmur, No Rub GI/Abdominal: Normal Bowel Sounds, Soft, Non-Tender, No Organomegaly, No Distention, No Abnormal Bruit, No Mass, Pelvis Stable (Male) Exam: Deferred Rectal (Males) Exam: Deferred Neuro Exam (Abbreviated): Alert, Oriented, CN II-XII Intact, Normal Cognition, Normal Gait Back Exam: Normal Inspection, Full Range of Motion Extremities: Normal Inspection, Normal Range of Motion, Non-Tender, No Pedal Edema, Normal Capillary Refill Psychiatric: Normal Affect, Normal Mood Skin Exam: Warm, Dry, Intact Course - Vital Signs Last Recorded V/S: Last Vital Signs Temp 98.7 F 06/03/20 09:31 Pulse 80 06/03/20 09:31 Resp 16 06/03/20 09:31 BP 121/80 06/03/20 09:31 Pulse Ox 99 06/03/20 09:31 - Orders/Labs/Meds Labs: Laboratory Tests 06/03/20 06/03/20 06/03/20 Range/Units 09:47 09:47 11:04 WBC 4.6 L (5.0-10.0) 10^3/uL RBC 4.54 L (4.6-6.2) 10^6/uL Hgb 15.0 (14.0-18.0) g/dL Hct 41.7 (40.0-54.0) % MCV 91.9 (80-100) fL MCH 33.0 (27.0-34.0) pg MCHC 36.0 H (33.0-35.0) g/dL Plt Count 253 (150-450) 10^3/uL Neut % (Auto) 55.1 (42.2-75.2) % Lymph % (Auto) 35.2 (20.5-50.1) % [place] % (Auto) 7.5 (2-8) % Eos % (Auto) 1.3 (1.0-3.0) % Baso % (Auto) 0.9 (0.0-1.0) % Sodium 140 (136-145) mmol/L Potassium 4.0 (3.5-5.1) mmol/L Chloride 103 (98-107) mmol/L Carbon Dioxide 28 (21-32) mmol/L Anion Gap 13.0 (7-13) mEq/L BUN 12 (7-18) mg/dL Creatinine 1.12 (0.70-1.30) mg/dL Est Cr Clr Drug Dosing 106.82 mL/min Estimated GFR (MDRD) > 60 BUN/Creatinine Ratio 10.7 (No establ ref range) Glucose 116 H (74-99) mg/dL Calcium 8.8 (8.5-10.1) mg/dL Total Bilirubin 0.6 (0.2-1.0) mg/dL AST 86 H (15-37) U/L ALT 119 H (16-63) U/L Alkaline Phosphatase 103 (46-116) U/L Total Protein 7.3 (6.4-8.2) g/dL Albumin 4.1 (3.4-5.0) g/dL Globulin 3.2 Albumin/Globulin Ratio 1.3 Urine Color (YELLOW) Urine Appearance (CLEAR) Urine pH (5.0-9.0) Ur Specific [place] (1.005-1.030) Urine Protein (NEGATIVE) Urine Glucose (UA) (NEGATIVE) Urine Ketones (NEGATIVE) Urine Occult Blood (NEGATIVE) Urine Nitrite (NEGATIVE) Urine Bilirubin (NEGATIVE) Urine Urobilinogen (0.2-1.0) mg/dL Ur Leukocyte Esterase (NEGATIVE) Urine Opiates Screen Negative (NEGATIVE) Ur Oxycodone Screen Negative (NEGATIVE) Urine Methadone Screen Negative (NEGATIVE) Ur Barbiturates Screen Negative (NEGATIVE) U Tricyclic Antidepress Negative (NEGATIVE) Ur Phencyclidine Scrn Negative (NEGATIVE) Ur Amphetamine Screen Negative (NEGATIVE) U Methamphetamines Scrn Negative (NEGATIVE) Urine MDMA Screen Negative (NEGATIVE) U Benzodiazepines Scrn Negative (NEGATIVE) Urine Cocaine Screen Negative (NEGATIVE) U Marijuana (THC) Screen Negative (NEGATIVE) Ethyl Alcohol 164 (0) mg/dL 06/03/20 Range/Units 11:04 WBC (5.0-10.0) 10^3/uL RBC (4.6-6.2) 10^6/uL Hgb (14.0-18.0) g/dL Hct (40.0-54.0) % MCV (80-100) fL MCH (27.0-34.0) pg MCHC (33.0-35.0) g/dL Plt Count (150-450) 10^3/uL Neut % (Auto) (42.2-75.2) % Lymph % (Auto) (20.5-50.1) % [place] % (Auto) (2-8) % Eos % (Auto) (1.0-3.0) % Baso % (Auto) (0.0-1.0) % Sodium (136-145) mmol/L Potassium (3.5-5.1) mmol/L Chloride (98-107) mmol/L Carbon Dioxide (21-32) mmol/L Anion Gap (7-13) mEq/L BUN (7-18) mg/dL Creatinine (0.70-1.30) mg/dL Est Cr Clr Drug Dosing mL/min Estimated GFR (MDRD) BUN/Creatinine Ratio (No establ ref range) Glucose (74-99) mg/dL Calcium (8.5-10.1) mg/dL Total Bilirubin (0.2-1.0) mg/dL AST (15-37) U/L ALT (16-63) U/L Alkaline Phosphatase (46-116) U/L Total Protein (6.4-8.2) g/dL Albumin (3.4-5.0) g/dL Globulin Albumin/Globulin Ratio Urine Color Yellow (YELLOW) Urine Appearance Clear (CLEAR) Urine pH 6.0 (5.0-9.0) Ur Specific [place] 1.025 (1.005-1.030) Urine Protein Negative (NEGATIVE) Urine Glucose (UA) Negative (NEGATIVE) Urine Ketones Negative (NEGATIVE) Urine Occult Blood Negative (NEGATIVE) Urine Nitrite Negative (NEGATIVE) Urine Bilirubin Negative (NEGATIVE) Urine Urobilinogen 0.2 (0.2-1.0) mg/dL Ur Leukocyte Esterase Negative (NEGATIVE) Urine Opiates Screen (NEGATIVE) Ur Oxycodone Screen (NEGATIVE) Urine Methadone Screen (NEGATIVE) Ur Barbiturates Screen (NEGATIVE) U Tricyclic Antidepress (NEGATIVE) Ur Phencyclidine Scrn (NEGATIVE) Ur Amphetamine Screen (NEGATIVE) U Methamphetamines Scrn (NEGATIVE) Urine MDMA Screen (NEGATIVE) U Benzodiazepines Scrn (NEGATIVE) Urine Cocaine Screen (NEGATIVE) U Marijuana (THC) Screen (NEGATIVE) Ethyl Alcohol (0) mg/dL - Re-Assessments/Exams Free Text/Narrative Re-Assessment/Exam: Reviewed exam findings and lab results with patient. No seizure activity observed in the ER during patient's stay. Encouraged patient to go to detox but he declined. Recommended alcohol treatment and patient states he will seek this on his own Departure - Departure Time of Disposition: 12:03 Disposition: Home, Self-Care 01 Condition: Good Clinical Impression: Alcohol abuse, Elevated liver function tests - Discharge Information Instructions: Alcohol Use Disorder, Alcohol Intoxication, [id number] Additional Instructions: Encouraged patient to go to detox but he declined. Recommended alcohol treatment and patient states he will seek this on his own. Condition to return to the ER reviewed with patient. Sepsis Event Note (ED) - Evaluation Sepsis Screening Result: No Definite Risk - Focused Exam Vital Signs: Vital Signs Temp Pulse Resp BP Pulse Ox 06/03/20 09:31 98.7 F 80 16 121/80 99
== END 2020-06-03 12:21 | disposition home or self-care (01) ==
LOC: DL.ED 09:22
DX: F10.10 Alcohol abuse, uncomplicated (principal); R79.89 Other specified abnormal findings of blood chemistry; Y90.6 Blood alcohol level of 120-199 mg/100 ml; Z88.0 Allergy status to penicillin
CPT/HCPCS: 36415; 80053; 80305-QW; 80307; 81003; 85025; 99284

== ENCOUNTER 2024-06-08 15:07 | Emergency (ER) | payer MEDICAID, OTHER ==
[2024-06-08 15:19] VITALS: BP 129/95; PULSE 100
[2024-06-08] MEDS: Take Home: hydrOXYzine HCl 25 MG Tab, 4 Tab Pack PO ONE (15:28)
[2024-06-08] MEDS: Take Home: LORazepam 1 MG Tab, 2 Tab Pack PO ONE (15:28)
[2024-06-08] MEDS: Take Home: Ondansetron 4 MG Tab.DIS, 5 Tab Pack PO ONE (15:28)
== END 2024-06-08 15:35 | disposition home or self-care (01) ==
LOC: DL.ED 15:07
DX: Z02.89 Encounter for other administrative examinations (principal); F17.210 Nicotine dependence, cigarettes, uncomplicated; Z88.0 Allergy status to penicillin; Z86.16 Personal history of COVID-19; Z90.49 Acquired absence of other specified parts of digestive tract
CPT/HCPCS: 99283; A9270; Q0162